=== PATIENT | male | born 1965 | race Caucasian/White ===

== ENCOUNTER 2018-10-16 09:50 | Inpatient (IN) ==
--- NOTE | 2018-10-14 10:08 | Anesthesiology Consultation ---
Date of Service October 14, 2018 Assessment & Plan (1) Encounter for pre-operative examination: Patient was scheduled for B/L TKA 10/08/18. Seen by LAKHWINDER Barber at [facility] on 09/11/18 (physical exam/ROS/vitals from that time included in chart). Patient was found to have abnormal CXR and followup chest CT finding of mediastinal mass. Knee surgery cancelled at this time pending workup of mediastinal mass (reason for current surgery). Chart Review Chart Review: Acceptable Risk for Surgery and Patient NOT seen in Pre Admission Testing History Surgery Operation Date: 10/16/18 11:30 Proposed Procedures p Right Robotic Video Assisted Thoracoscopic Surgery with Excision of Mediastinal Mass - Jose Mallory MD, FACS Height/Weight Height: 6 ft 1 in Weight: 126.1 kg Allergies Allergy/AdvReac Type Severity Reaction Status Date / Time No Known Allergies Allergy Unverified 09/11/18 07:57 Medications Home Medications Medication Instructions Recorded Confirmed Last Taken tamsulosin 0.4 mg PO DAILY 09/11/18 09/11/18 Unknown Past Medical History Medical History BPH (benign prostatic hyperplasia) Mediastinal mass REASON FOR PROCEDURE Osteoarthritis Past Family History Family History Unknown No problems noted. Past Surgical History Surgical History History of colonoscopy History of inguinal hernia repair, bilateral INFANCY Hx of arthroscopy of knee B/L Social History Smoking Status: Never smoker Hx Alcohol Use: Yes Alcohol type: beer alcohol intake frequency: a few times a week Hx Substance Use: No substance use type: does not use Review of Systems Per PAT visit 09/11/18 by LAKHWINDER Barber: Patient denies chest pain, shortness of breath, dyspnea on exertion, reflux, cough, wheezing, palpitations. +joint pain (knees) Physical Exam Vital Signs Per PAT visit 09/11/18 by LAKHWINDER Barber: Vital Signs BP: 134/85 P: 75 R: 14 T: 98.6 SPO2: 96% on RA Per PAT visit 09/11/18 by LAKHWINDER Barber: ENMT Thyromental Distance: > or= 3.5 Finger Breadths (3.5) Mallampati Class: II Neck normal visual inspection and trachea midline; neck extension not limited Respiratory normal respiratory effort Auscultation: lungs clear to auscultation bilaterally Cardiovascular Rate/Rhythm: regular rate and regular rhythm Heart Sounds: no murmur Vessels: no carotid bruit Neurologic moves all extremities Psychiatric Orientation: alert and oriented x 3 Testing Electrocardiogram Date: 09/11/18 Findings: + NSR @ (64) Chest X-Ray Date: 09/11/18 Abnormal configuration to the right heart border which likely represents the normal overlapping pulmonary vessels. However, in the absence of prior studies recommend dedicated chest CT to exclude the less likely possibility of a mediastinal lesion. This finding was called/faxed to the referring physician's office following dictation. Stress Test Date: 09/14/14 Type: exercise Findings: + WNL Resting EF: 55-60% Valvular Disease: no significant valvular disease The stress echo is negative for inducible ischemia. No arrhythmias. Normal HR and BP response to exercise. Average exercise tolerance. At rest, normal LV chamber size and wall thickness. Normal LV systolic function without RWMA. Grade I diastolic dysfunction Other Testing Chest CT= 09/23/18= Circumscribed soft tissue mass of the anterior mediastinum correlates with the finding seen on comparison chest radiograph and measures up to 8.1 cm and demonstrates minimal central low attenuation suggestive of areas of internal necrosis. Differential considerations would include thymic epithelial neoplasm which is favored with lymphoma or germ cell tumor among other etiologies considered less likely. Surgical consultation recommended. No thoracic adenopathy identified. There are several scattered noncalcified solid pulmonary nodules noted about the bilateral lungs measuring up to 4 mm. Prior granulomatous disease. Laboratory Results 09/11/18 WBC 4.99 H/H 15.9/46.4 PLATELETS 232 SODIUM 140 POTASSIUM 4.6 CHLORIDE 105 CO2 28 BUN 19 CREATININE 1.14 GLUCOSE 99 PT 10.2 PTT 27.1 INR 1.0 UA negative bacteria TYPE AND SCREEN O+ Ab-
[~2018-10-16 09:50] MED LIST: LR 15ML/HR IV SCH
--- NOTE | 2018-10-16 10:21 | History & Physical Bridge Note ---
Date of Service October 16, 2018 History & Physical Bridge Note I have examined the patient, reviewed the History & Physical and in the interval since the performance of the History & Physical I have noted the following changes of clinical significance: no changes noted
[2018-10-16] MEDS ORDERED: BUPIVACAINE 0.5 % 5 MG/1 ML MPF 30ML VIAL ONE (10:34)
[2018-10-16] MEDS ORDERED: BUPIVACAINE LIPOSOME 1.3% 266 MG/20 ML VIAL ONE (10:35)
[2018-10-16] MEDS ORDERED: SODIUM CHLORIDE 0.9% PF 50 ML VIAL ONE (10:35)
[2018-10-16] MEDS ORDERED: PHENYLEPHRINE HCL 10 MG/ML VIAL ONE (10:54)
[2018-10-16] MEDS ORDERED: NEOSTIGMINE METHYLSULFATE 5 MG/5 ML SYR ONE (10:54)
[2018-10-16] MEDS ORDERED: SUCCINYLCHOLINE CHLORIDE 20 MG/ML 10 ML VIAL ONE (10:54)
[2018-10-16] MEDS ORDERED: GLYCOPYRROLATE 0.2 MG/ML VIAL ONE (10:54)
[2018-10-16] MEDS ORDERED: DEXAMETHASONE SOD INJ 4 MG/ML VIAL ONE (10:54)
[2018-10-16] MEDS ORDERED: ONDANSETRON INJ 2 MG/ML 2 ML VIAL ONE (10:54)
[2018-10-16] MEDS ORDERED: LIDOCAINE HCL 2% 2 ML VIAL/AMP(20MG/ML) INFIL ONE (10:54)
[2018-10-16] MEDS ORDERED: PROPOFOL IV EMULSION 10 MG/ML 20 ML VIAL IV ONE (10:54)
[2018-10-16] MEDS ORDERED: ePHEDrine sulfate 50 MG/ML AMP ONE (10:54)
[2018-10-16] MEDS ORDERED: fentaNYL citrate 100 MCG/2 ML VIAL ONE ×2 (10:55→11:18)
[2018-10-16] MEDS ORDERED: MIDAZOLAM HCL 1 MG/ML 2ML VIAL ONE (10:55)
[2018-10-16] MEDS ORDERED: CEFAZOLIN 3000MG 72.5 ML IV ONE (12:44)
[2018-10-16] MEDS ORDERED: ATROPINE SULFATE 0.1 MG/ML 10ML SYR IV PRN (13:34)
[2018-10-16] MEDS ORDERED: ONDANSETRON INJ 2 MG/ML 2 ML VIAL IV PRN ×2 (13:34→16:25)
[2018-10-16] MEDS ORDERED: PROMETHAZINE HCL 6.25 MG in SODIUM CHLORIDE 0.9% 50 ML IV PRN (13:34)
[2018-10-16] MEDS ORDERED: ePHEDrine sulfate 50 MG/ML AMP IV PRN (13:34)
[2018-10-16] MEDS ORDERED: ALBUTEROL HFA INHALER 8.5 GM ONE (13:39)
[2018-10-16] MEDS ORDERED: ETOMIDATE 2 MG/ML 20 ML VIAL IV ONE (13:39)
--- NOTE | 2018-10-16 13:43 | Post Operative Brief Note ---
Immediate Post Op Note v1 Date of Surgery October 16, 2018 Pre & Post Diagnosis Operation Date: 10/16/18 11:30 Pre-Op Diagnosis: Mediastinal Mass Post-Op Diagnosis: Mediastinal Mass Procedure Operation Date: 10/16/18 11:30 Actual Procedures p Right Robotic Video Assisted Thoracoscopic Surgery with Excision of Mediastinal Mass - Jose Mallory MD, FACS Surgeon Jose Mallory MD, FACS Customer Relationship Specialist Jamey MACHADO Estimated Blood Loss 15 Findings Consistent with Post-Op Diagnosis Drains Chest Tube (24fr placed intraoperatively) and Akhtar Catheter (16fr catheter placed by Sunday Choudhury RN, without difficulty; akhtar demonstrates clear yellow urine. Output measured and recorded by anesthesia.)
[2018-10-16] MEDS ORDERED: METOCLOPRAMIDE HCL INJ 5 MG/ML 2 ML VIAL IV ONE (14:05)
[2018-10-16] MEDS ORDERED: ROCURONIUM BROMIDE 10 MG/ML 5 ML VIAL ONE (14:14)
[2018-10-16] MEDS: fentaNYL citrate 100 MCG/2 ML VIAL IV PRN ×4 (14:14→14:34)
--- NOTE | 2018-10-16 14:27 | XRay Report ---
XR chest 1V portable CLINICAL HISTORY: thymectomy COMPARISON STUDY: Chest radiograph September 11, 2018. Chest CT September 23, 2018. FINDINGS: A tube projects over the right hemithorax and mediastinum. There is no pneumothorax. Lung v olumes are mildly diminished. There is no evidence for pulmonary edema. Bibasilar opacities favor ate lectasis. IMPRESSION: 1. No pneumothorax. Chest tube projects over the right hemithorax and mediastinum. 2. Diminished lung volumes with bibasilar opacities which favor atelectasis. Electronically signed by: David Tamayo M.D. 10/16/2018 2:26 PM
[2018-10-16] MEDS: HYDROmorphone INJ 2 MG/ML SYR/VIAL IV PRN ×3 (14:39→14:59)
[2018-10-16] MEDS: OXYCODONE HCL IR 5 MG TAB (IMMEDIATE RELEASE) PO PRN (17:07)
[2018-10-16] MEDS: D5W AND 1/2NSS 1,000 ML IV SCH (18:08)
[2018-10-16] MEDS: ACETAMINOPHEN 1,000 MG/100 ML VIAL IV SCH (18:08)
[2018-10-16] MEDS ORDERED: COUGH DROP (SUGAR FREE) LOZ 24 LOZ/1 BOX BUCCAL ONE (20:25)
[2018-10-16] MEDS: METOCLOPRAMIDE HCL INJ 5 MG/ML 2 ML VIAL IV SCH (20:26)
[2018-10-16] MEDS: MoRPHine SULFATE 2 MG/ML CARP IV PRN (20:26)
[2018-10-16] MEDS: DOCUSATE SODIUM 100 MG CAP PO SCH (20:28)
[2018-10-16] MEDS ORDERED: TAMSULOSIN HCL 0.4 MG CAP PO SCH (21:00)
--- NOTE | 2018-10-16 22:18 | Operative Report ---
DATE OF OPERATION: 10/16/2018 PREOPERATIVE DIAGNOSIS: Anterior mediastinal mass. POSTOPERATIVE DIAGNOSIS: Thymoma. PROCEDURE: Robot-assisted right thoracoscopic thymectomy. SURGEON: Jose Mallory MD SENIOR INFORMATION SECURITY ANALYST: CARTER Redmond (MrShana Blue was present for the entire case, was at the patient's bedside, while I was at the console.) ANESTHESIA: General anesthesia with endotracheal intubation using double lumen tube. SPECIFICS OF PROCEDURE AND FINDINGS: This is a 53-year-old male who has severe osteoarthritis of both knees. He underwent a preoperative chest x-ray and was found to have a mediastinal mass. He underwent a workup and this certainly appeared to be a thymoma from its radiographic appearance. He was asymptomatic. We had a long talk about this in the office and scheduled him for a robot-assisted thoracoscopic resection. On 10/16/2018, the patient underwent an uncomplicated robot-assisted thoracoscopic resection via the right chest. It was a large mass. We did get it out. We had to open the assistance incision a bit in the lower lateral chest. Frozen section confirmed this was a thymoma. It was completely encapsulated. DESCRIPTION OF PROCEDURE: The patient was brought to the operating room and laid in the supine position. General anesthesia induced and endotracheal intubation was performed with double lumen tube. After this had been assessed bronchoscopically, we then left the patient in a supine position, but we did depress his right arm and elevate his right chest just on a small roll. He was then prepped and draped in usual sterile fashion after appropriate antibiotics had been given and a timeout had been called. A 5-mm thoracoscope was placed lateral to the mid axillary line in about the fifth interspace. Upon entering, it could be seen there were no adhesions. The thoracoscope was inserted and used to guide the anterior superior incision which was lateral to the pectoralis and anterior to the axilla. This was an 8-mm robotic port. Another 8-mm robotic port was placed at about the fifth interspace anteriorly. We placed an assistance port above the diaphragm. The robot was then docked. Upon entering the chest, this mass was easily apparent. It was a bit lobulated. Using electrocautery and traction, we this easily from the anterior sternal wall. It then came down and we were able to reflect it off of the pericardium inferiorly and then took both the superior poles of the thymus. We did use clips to control the venous bleeding. After freeing this up, we stayed on the pericardium and came over laterally. We then retracted the mass, which was rather large medially and identified the phrenic nerve. We kept our dissection medial to this superiorly and inferiorly. We were able to do this sharply and we were able to separate the entire mass. There was a bit of an inflammatory response to the pericardial fat and the pericardium and we were able to easily separate these. We then placed this in a large Endobag. This was placed in the assistance port. The robot was then undocked. We had to open this incision a few centimeters in order to deliver the mass off the field. It was hard and lobulated. It was sent down to the lab for frozen section. While waiting for this, we performed an Exparel block. Exparel 266 mg, was mixed with 30 mL of 0.25% Marcaine and 250 mL of normal saline to create a solution which we injected into each of the 4 ports prior to opening. We then injected the larger incision after we had opened it at the conclusion of the case to get the specimen out. We then performed a block from the 2nd to 11th rib under thoracoscopic guidance. This was an intercostal block intrathoracically. We irrigated out the chest, really had no bleeding. A 24-Canadian chest tube was placed through the camera port and directed towards the apex under thoracoscopic guidance. It was held in place with heavy silk suture. A 0 Vicryl was used to close the muscle layers of all of these incisions and 4-0 Monocryl was used in running subcuticular fashion to approximate the wound edges. He had no air leak. He was extubated in the room. Blood loss was negligible. Frozen section came back as consistent with thymoma. I attest to the content of the Intraoperative Record and any orders documented therein. Any exception s are noted below.
[2018-10-17] MEDS: ACETAMINOPHEN 1,000 MG/100 ML VIAL IV SCH (01:49)
[2018-10-17] MEDS: D5W AND 1/2NSS 1,000 ML IV SCH (01:49)
[2018-10-17] MEDS: METOCLOPRAMIDE HCL INJ 5 MG/ML 2 ML VIAL IV SCH (05:02)
[2018-10-17] MEDS: OXYCODONE HCL IR 5 MG TAB (IMMEDIATE RELEASE) PO PRN (05:24)
--- NOTE | 2018-10-17 07:20 | XRay Report ---
XR chest 1V portable HISTORY: 53 years-old Male thymectomy follow up study in a patient with prior thoracic surgery COMPARISON: Chest radiograph 10/16/2018 TECHNIQUE: Portable AP view of the chest FINDINGS: Cardiac mediastinal and hilar silhouettes appear unchanged. The right-sided chest tube is noted with distal tip terminating about the medial right lung base, slightly inferior from comparison. Decreased subcutaneous emphysema about the right lateral chest wall. Tiny right apical pneumothorax, pleural s eparation of 1.2 cm. Lungs are hypoinflated. Mild right hemidiaphragm elevation with subsegmental bib asilar atelectasis. Degenerative changes of the shoulders and spine. IMPRESSION: 1. Right-sided chest tube distal tip terminates adjacent to the medial right lung base. Tiny right ap ical pneumothorax, pleural separation of 1.2 cm. 2. Hypoinflation with bibasilar opacities suggestive of atelectasis. The above report was generated using voice recognition software. It may contain grammatical, syntax o r spelling errors. Electronically signed by: Aquiles Zarco M.D. 10/17/2018 7:18 AM
[2018-10-17] MEDS: MoRPHine SULFATE 2 MG/ML CARP IV PRN (07:30)
[2018-10-17] MEDS ORDERED: CEFAZOLIN 250 MG/ML 1 GM VIAL ONE (07:43)
[2018-10-17 07:46] LABS: Creatinine Clr Calc Pharmacy 132.3 ml/min; Est GFR (African American) 113.4; Est GFR (Non-African American) 97.8
--- NOTE | 2018-10-17 07:53 | Anesthesiology Progress Note ---
Date of Service October 17, 2018 Anesthesia Post Procedure Vital Signs Vital Signs: Temp Pulse Pulse Pulse Resp BP BP 10/17/18 07:00 36.9 C 66 16 120/76 10/17/18 05:05 36.9 C 80 16 115/72 10/17/18 03:00 37 C 77 16 113/70 10/17/18 01:00 37 C 79 16 118/72 10/16/18 23:03 36.8 C 71 18 118/72 10/16/18 21:20 37.3 C 81 16 109/67 10/16/18 19:27 37.0 C 89 19 124/73 10/16/18 18:00 89 16 121/79 10/16/18 17:00 36.9 C 97 H 18 123/72 10/16/18 15:55 37.0 C 82 16 137/81 10/16/18 15:35 68 12 119/73 10/16/18 15:20 36.7 C 65 14 128/81 10/16/18 15:10 75 13 124/76 10/16/18 15:00 61 12 145/91 H 10/16/18 14:50 79 13 131/77 10/16/18 14:40 79 19 143/88 H 10/16/18 14:30 59 L 13 142/81 H 10/16/18 14:20 58 L 14 152/89 H 10/16/18 14:12 66 19 144/91 H 10/16/18 14:04 36.0 C L 70 16 156/92 H 10/16/18 10:10 36.5 C 62 18 142/84 H Pulse Ox 10/17/18 07:00 91 10/17/18 05:05 92 10/17/18 03:00 98 10/17/18 01:00 91 10/16/18 23:03 91 10/16/18 21:20 91 10/16/18 19:27 93 10/16/18 18:00 93 10/16/18 17:00 93 10/16/18 15:55 96 10/16/18 15:35 97 10/16/18 15:20 97 10/16/18 15:10 95 10/16/18 15:00 96 10/16/18 14:50 98 10/16/18 14:40 94 10/16/18 14:30 95 10/16/18 14:20 100 10/16/18 14:12 98 10/16/18 14:04 97 10/16/18 10:10 97 Pain Intensity Right Anterior Lateral Chest: Pain Intensity: 7 Notes Mental Status: alert / awake / arousable and participated in evaluation Patient Amnestic to Procedure: Yes Nausea / Vomiting: adequately controlled Pain: adequately controlled Airway Patency, RR, SpO2: stable & adequate BP & HR: stable & adequate Hydration State: stable & adequate Anesthetic Complications: Pt Satisfied with anesthetic care
--- NOTE | 2018-10-17 07:55 | XRay Report ---
XR chest 1V portable HISTORY: 53 years-old Male chest tube removal status post removal of right-sided chest tube COMPARISON: Chest radiograph of same day at 7:06 AM TECHNIQUE: Portable AP view of the chest FINDINGS: Status post removal of the right-sided chest tube. Tiny right apical pneumothorax appears unchanged w ith pleural separation of approximately 1.2 cm. Cardiac mediastinal and hilar silhouettes are unchang ed. Mild right hemidiaphragmatic elevation. Subsegmental bibasilar atelectasis. Degenerative changes of the shoulders and spine. Subcutaneous emphysema of the lateral right chest wall. IMPRESSION: 1. Status post removal of the right-sided chest tube. Tiny right apical pneumothorax is unchanged. 2. Mild right hemidiaphragmatic elevation with bibasilar opacities suggestive of atelectasis. The above report was generated using voice recognition software. It may contain grammatical, syntax o r spelling errors. Electronically signed by: Aquiles Zarco M.D. 10/17/2018 7:54 AM
[2018-10-17 08:00] VITALS: PULSE 79; TEMP 99; O2SAT 92
[2018-10-17] MEDS ORDERED: ACETAMINOPHEN 325 MG TAB PO SCH (08:00)
[2018-10-17 08:18] VITALS: BP 137/81
[2018-10-17] MEDS ORDERED: ENOXAPARIN INJ 40 MG/0.4 ML SYR SQ SCH (09:00)
[2018-10-17] MEDS: DOCUSATE SODIUM 100 MG CAP PO SCH (09:22)
--- NOTE | 2018-10-18 05:22 | Discharge Summary ---
DISCHARGE DIAGNOSES: 1. Thymoma. 2. Status post right robot-assisted thoracoscopic thymectomy. HOSPITAL COURSE: This is a very nice 53-year-old male, actually has severe osteoarthritis of both of his knees and was being readied for bilateral total knee arthroplasties when his chest x-ray showed a mass in his mediastinum. For this reason, he underwent a CT scan and was found to have a lobulated mass, certainly appeared to be a thymoma. I saw him in the office and set him up for a thymectomy. On 10/16/2018, the patient underwent an uncomplicated right robot-assisted thoracoscopic thymectomy. It was large. It was encapsulated. We had to make our assistance incision a bit longer in order to get the solid mass out. Frozen section was performed and Dr. Yung Rainey felt we were dealing with a thymoma. The capsule was intact. We had negligible blood loss and no air leak. He tolerated it well. His chest tube was removed. The following morning, his x-ray looked quite good. His pain was well controlled. We did send him home on some oxycodone. I will see him back next week to go over the final pathology. He tolerated this quite well. We were quite pleased with him after surgery.
== END 2018-10-17 11:14 | disposition home or self-care (01) | DRG 804 ==
LOC: ASU 09:50 → 3W 13:53

== ENCOUNTER 2018-12-25 05:48 | Inpatient (IN) ==
--- NOTE | 2018-11-29 08:31 | History & Physical Report ---
Date of Service November 29, 2018 Date of Surgery: 12-25-18 Assessment & Plan (1) Bilateral primary osteoarthritis of knee: Further care discussed with Mr Burris and at this point in time has failed conservative measures and would like to proceed with bilateral total knee replacements on 12-25-18. Plan on discharge will be home with home health physical therapy. DVT prophalaxis with TEDs, SCDs and will also place on Xarelto daily for a month postop. Patient will have follow up appointment in our office two weeks post op for staple removal and re-evaluation. Patient otherwise has no other questions or concerns. Xrays confirm advancing degenerative changes in both knees, he takes Aleve daily, has had knee arthroscopy on both knees in the past, xrays showing advancing DJD both knees, he has also had previous visco injections at this point would like to proceed with bilateral TKAs. History of Present Illness Chief Complaint: bilateral knee pain Primary Care Provider: Yung Fernandez MD Mr Burris is a pleasant 53 year old male who complains of bilateral knee pain, presents for pre-op evaluation prior to bilateral total knee replacements on 11-[address] Lai. He had initially been scheduled earlier this year, however after his pre-op CXR, he followed up with Dr Mallory and subsequently underwent Robot-assisted right thoracoscopic thymectomy. he has recovered well from this surgery and has been cleared to proceed. In regards to his knees, He states his pain is equal on both sides. He states that the symptoms have been chronic non-traumatic. The symptoms occur constantly with intermittent worsening. Currently the patient states that the symptoms are mild-moderate. The pain is described as aching, discomforting and throbbing. The symptoms occur continuously. He rates his current pain as 4/10 and worst is 8/10. The symptoms are aggravated by ascending stairs, descending stairs, daily activities, first steps while awake, kneeling, sleeping in any position, squatting, standing, walking and work activities. Uri states that the symptoms are relieved by no specific activity. In addition to knee pain equally on both sides the patient is also experiencing crepitus, decreased mobility, difficulty going to sleep and joint pain. He has been treated previously with Visco injections, Cortisone injections as well as has had arthroscopic surgery. 03-25-09 Dr. Lai performed Right knee arthroscopy with partial medial meniscectomy & chondroplasty. 06-09-12 Left knee arthroscopy with partial medial meniscectomy & chondroplasty. Allergies Allergy/AdvReac Type Severity Reaction Status Date / Time No Known Allergies Allergy Verified 10/16/18 10:09 Home Medications Home Medications Medication Instructions Recorded Confirmed Type tamsulosin 0.4 mg PO QPM 09/11/18 10/16/18 History oxycodone 5 mg PO Q6H PRN #18 cap 10/17/18 Rx Past Med/Surg History Medical History BPH (benign prostatic hyperplasia) Mediastinal mass REASON FOR PROCEDURE Osteoarthritis Surgical History History of thymectomy 2019 History of colonoscopy History of inguinal hernia repair, bilateral INFANCY Hx of arthroscopy of knee B/L Family History Unknown No problems noted. Social History Preferred Language: Ukrainian Communication Ability: Effective Beliefs That Will Affect Care: None Current Living Situation: Spouse Feels Safe at Home: Yes Smoking Status: Never smoker Cigarettes Per Day: 20 Second Hand Exposure: No Hx Alcohol Use: Yes Alcohol type: beer Hx Substance Use: No Review of Systems Review of Systems: All systems reviewed & are unremarkable except as noted in HPI & below Constitutional: no fever, no chills and no sweats Respiratory: no cough, no chest congestion and no dyspnea Cardiovascular: no chest pain, no dyspnea and no orthopnea Gastrointestinal: no abdominal pain, no nausea and no vomiting Musculoskeletal: as per Subjective / HPI Physical Exam Physical Exam: HT: 73 in WT: 250 lbs BP: 130/80 Pulse: 72 Constitutional: WD/WN, vitals as above no acute distress Respiratory: normal respiratory effort, lungs clear to auscultation no respiratory distress, no labored breathing and does not use accessory muscles Cardiovascular: RRR, no murmur, no edema Gastrointestinal (Abdomen): normal bowel sounds, soft, nontender, no hepatosplenomegaly Musculoskeletal: Bilateral knee Physical exam Overall patient has neutral alignment bilaterally, there is no atrophy or ecchymosis noted, she does have +2 suprapatellar effusion in both of her knees, she has tenderness to both medial and lateral joint lines to her right knee, more medial sided tenderess to the left knee. negative patellar apprehension, she does have crepitation noted to both knees with active ROM. bilateral knees stable to valgus and varus stress, wilmar negative, posterior drawer negative. Range of motion right knee 0/3/110, left knee 0/3/115. her lower extremities are neurovascularly intact, calf soft and non tender, DP pulse +2 bilaterally. Results & Data Diagnostic Findings Bilateral Knee X-ray from August 2018 confirm advanced degenerative changes bilateral knees, greatest medial compartments and patellofemoral joints, showing joint space narrowing, osteophyte formation and subchondral sclerosis. no acute bony pathology noted. no loose bodies, overall has varus alignment.
--- NOTE | 2018-11-29 09:43 | Anesthesiology Consultation ---
Date of Service November 29, 2018 Assessment & Plan (1) Encounter for pre-operative examination: Chart Review Chart Review: Acceptable Risk for Surgery and Patient seen in Pre Admission Testing Consults Requested medical (Dr. Hicks (11/29)) Patient was seen by Dr. Fernandez 11/29/18 and note states "Low overall cardiac risk for b/l knee replacement". Teaching & Discussion Pre-Anesthesia Teaching/Discussion Notes: Instructed NPO after midnight before surgery, except medications with 15 cc of water. Medication instructions provided according to the PAT guidelines. 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 Denies CP or SOB.) Past Family History Family History Unknown No problems noted. Grandmother (Maternal) Family history of diabetes mellitus Past Surgical History Surgical History History of thymectomy 2018 (BENIGN) 10/16/18 - MAC #4, Grade 2 View History of colonoscopy History of inguinal hernia repair, bilateral INFANCY Hx of arthroscopy of knee B/L Past Anesthesia History No Hx of Anesthesia Complications and No Family Hx of Anesthesia Complications History of PONV No Hx of PONV and No Hx of Motion Sickness Social History Smoking Status: Never smoker Hx Alcohol Use: Yes Alcohol type: beer alcohol intake frequency: a few times a week Alcohol Intake Frequency Comment: Weekends Hx Substance Use: No substance use type: does not use Review of Systems Patient denies chest pain, shortness of breath, dyspnea on exertion, joint pain, reflux, cough, wheezing, palpitations. +Joint Pain (Knees) Physical Exam Vital Signs BP: 112/74 P: 64 R: 16 T: 97.9 SPO2: 97% on RA ENMT Thyromental Distance: > or= 3.5 Finger Breadths (4) Mallampati Class: I Neck normal visual inspection and trachea midline; neck extension not limited Respiratory normal respiratory effort Auscultation: lungs clear to auscultation bilaterally Cardiovascular Rate/Rhythm: regular rate and regular rhythm Heart Sounds: no murmur Vessels: no carotid bruit Neurologic moves all extremities Psychiatric Orientation: alert and oriented x 3 Testing Electrocardiogram Date: 09/11/18 Findings: + NSR @ (64) Chest X-Ray Date: 10/26/18 Findings: + NAD FINDINGS: There is no pneumothorax or pleural effusion. Cardiomediastinal silhouette is normal. Linear bilateral opacities favor atelectasis. There is no evidence for pulmonary edema or pneumonia. IMPRESSION: 1. No acute cardiopulmonary findings. No pneumothorax. 2. Linear bilateral opacities suggestive of atelectasis. Stress Test Date: 09/14/14 Type: exercise Findings: + WNL Resting EF: 55-60% Resting RWMA: + none Valvular Disease: no significant valvular disease The stress echo is negative for inducible ischemia. No arrhythmias. Normal HR and BP response to exercise. Average exercise tolerance. At rest, normal LV chamber size and wall thickness. Normal LV systolic function without RWMA. Grade I diastolic dysfunction Laboratory Results 11/29/18 10:12 11/29/18 10:12 PT 10.3 Seconds (9.0-12.0) 11/29/18 10:12 INR 1.0 (0.9-1.1) 11/29/18 10:12 APTT 28.4 Seconds (21.0-31.0) 11/29/18 10:12 Urine Color Yellow 11/29/18 10:12 Urine Appearance Clear (Clear) 11/29/18 10:12 Urine pH 6.5 (4.5-7.5) 11/29/18 10:12 Ur Specific [place] 1.016 (1.000-1.030) 11/29/18 10:12 Urine Protein Negative (Negative) 11/29/18 10:12 Urine Glucose (UA) Negative (Negative) 11/29/18 10:12 Urine Ketones Negative (Negative) 11/29/18 10:12 Urine Nitrite Negative (Negative) 11/29/18 10:12 Ur Leukocyte Esterase Negative (Negative) 11/29/18 10:12 Urine WBC (Auto) 0 /hpf (0-5) 11/29/18 10:12 Urine RBC (Auto) 0-4 /hpf (0-4) 11/29/18 10:12 U Hyaline Cast (Auto) 0 /lpf (0-5) 11/29/18 10:12 U Epithel Cells (Auto) 0-5 /lpf (0-5) 11/29/18 10:12 Urine Bacteria (Auto) Negative (Negative) 11/29/18 10:12
--- NOTE | 2018-11-29 09:46 | PAT Medication Instructions ---
Medication Instructions Date of Service November 29, 2018 Home Medications tamsulosin 0.4 mg PO QPM Take morning of surgery With a small sip of water, OTHERWISE NOTHING TO EAT OR DRINK AFTER MIDNIGHT: tamsulosin 0.4 mg PO QPM Other Notes If you have any questions please call us at [phone] or [phone] or [phone] or [phone]
[2018-11-29 11:51] LABS: Basophils # (auto) 0.02 K/uL (0-0.2); Basophils % (auto) 0.4 %; Eosinophils # (auto) 0.07 K/uL (0-0.5); Eosinophils % (auto) 1.3 %; Hematocrit (blood only) 44.1 % (42-52); Hemoglobin 15.4 g/dL (14.0-18.0); Immature Granulocytes # (auto) 0.01 K/uL (0.00-0.02); Immature Granulocytes % (auto) 0.2 %; Lymphocytes # (auto) 1.63 K/uL (1.2-3.4); Mean Corpuscular Hgb Conc 34.9 g/dL (32-36); Mean Corpuscular Volume 86.5 fL (80-100); Mean Platelet Volume 10.4 fL (7.4-10.4); Monocytes # (auto) 0.67 K/uL (0.11-0.59); Monocytes % (auto) 12.7 %; Neutrophils # (auto) 2.86 K/uL (1.4-6.5); Neutrophils % (auto) 54.4 %; Platelet Count 251 K/uL (130-400); RDW Coefficient of Variation 13.5 % (11.5-14.5); RDW Standard Deviation 42.9 fL (36.4-46.3); White Blood Count 5.26 K/uL (4.8-10.8)
[2018-11-29 11:54] LABS: Appearance Urine Clear (Clear); Bacteria Urine Automated Negative (Negative); Bilirubin Urine Negative (Negative); Blood Urine Trace (Negative); Cast Urine Automated 0 /lpf (0-5); Color Urine Yellow; Epithelial Cell Urine Auto 0-5 /lpf (0-5); Glucose Urine UA Negative (Negative); Ketones Urine Negative (Negative); Leukocyte Esterase Urine Negative (Negative); Nitrite Urine Negative (Negative); Protein Urine Negative (Negative); RBC Urine Automated 0-4 /hpf (0-4); Specific Gravity Urine 1.016 (1.000-1.030); Urobilinogen Urine Negative (Negative); WBC Urine Automated 0 /hpf (0-5); pH Urine 6.5 (4.5-7.5)
[2018-11-29 12:01] LABS: Albumin Level 3.8 gm/dl (3.4-5.0); Creatinine Clr Calc Pharmacy 123.2 ml/min; Est GFR (African American) 106.1; Est GFR (Non-African American) 91.6; Potassium 4.4 mmol/L (3.5-5.1)
[2018-11-29 12:02] LABS: Partial Thromboplastin Time 28.4 Seconds (21.0-31.0); Prothrombin Time 10.3 Seconds (9.0-12.0)
[2018-11-29 12:56] LABS: Estimated Average Glucose 108 mg/dl; Hemoglobin A1C 5.4 % (4.5-5.6)
[2018-12-25] MEDS ORDERED: CEFAZOLIN 3000MG 65 ML IV SCH ×2 (06:00)
[2018-12-25] MEDS ORDERED: TRANEXAMIC ACID 1,000 MG **IV Pre-op IV SCH (06:00)
[2018-12-25] MEDS ORDERED: FAMOTIDINE 20 MG TAB PO SCH (06:00)
[2018-12-25] MEDS ORDERED: GABAPENTIN 300 MG PO SCH (06:00)
[2018-12-25] MEDS ORDERED: CeleBREX 200 MG CAP PO SCH (06:00)
[2018-12-25] MEDS ORDERED: ACETAMINOPHEN 500 MG TAB PO SCH (06:00)
[2018-12-25] MEDS ORDERED: ROPIVACAINE 0.5% HCL/PF 150 MG, BUPIVACAINE 0.5% MPF 30 ML, EPINEPHrine 30MG/30ML (OR U... INFIL SCH (06:00)
[2018-12-25] MEDS ORDERED: LR 500ML BOLUS, THEN 15ML/HR IV SCH (06:00)
[2018-12-25] MEDS ORDERED: dexAMETHasone 4 MG TAB PO SCH (06:00)
[2018-12-25] MEDS ORDERED: CEFAZOLIN 2000MG 2,000 MG/15 ML SYR IV SCH (06:00)
[2018-12-25] MEDS ORDERED: METOCLOPRAMIDE HCL 10 MG TABLET PO SCH (06:00)
[2018-12-25] MEDS ORDERED: TRANEXAMIC ACID 1,000 MG **IV Intra-op IV SCH (06:30)
[2018-12-25] MEDS ORDERED: BUPIVACAINE 0.5 % 5 MG/1 ML PF 10ML VIAL ONE (06:32)
[2018-12-25] MEDS ORDERED: ROPIVACAINE 0.5% 5 MG/ML 30 ML VIAL ONE (06:32)
[2018-12-25] MEDS ORDERED: LIDOCAINE HCL 2% 2 ML VIAL/AMP(20MG/ML) INFIL ONE (06:44)
[2018-12-25] MEDS ORDERED: fentaNYL citrate 100 MCG/2 ML VIAL ONE ×2 (06:44→10:51)
[2018-12-25] MEDS ORDERED: MIDAZOLAM HCL 1 MG/ML 2ML VIAL ONE ×2 (06:44→08:49)
[2018-12-25] MEDS ORDERED: PROPOFOL IV EMULSION 10 MG/ML 20 ML VIAL IV ONE ×5 (06:44→09:08)
[2018-12-25] MEDS ORDERED: ORTHO JOINT ANESTHETIC ONE (07:00)
[2018-12-25] MEDS ORDERED: POVIDONE-IODINE OP SOLN 30 ML BTL ONE (07:00)
[2018-12-25] MEDS ORDERED: BACITRACIN INJ 50,000 UNIT VIAL ONE (07:00)
--- NOTE | 2018-12-25 07:04 | History & Physical Bridge Note ---
Date of Service December 25, 2018 History & Physical Bridge Note I have examined the patient, reviewed the History & Physical and in the interval since the performance of the History & Physical I have noted the following changes of clinical significance: no changes noted
[2018-12-25] MEDS ORDERED: ATROPINE SULFATE 0.1 MG/ML 10ML SYR IV PRN (07:21)
[2018-12-25] MEDS ORDERED: HYDROmorphone INJ 1 MG/ML SYRINGE IV PRN (07:21)
[2018-12-25] MEDS ORDERED: ePHEDrine sulfate 50 MG/ML AMP IV PRN (07:21)
--- NOTE | 2018-12-25 10:40 | Operative Report ---
Post Operative Report Pre & Post Diagnosis Operation Date: 12/25/18 08:20 Pre-Op Diagnosis: BILATERAL KNEE OSTEOARTHRITIS Post-Op Diagnosis: BILATERAL KNEE OSTEOARTHRITIS Procedure Operation Date: 12/25/18 08:20 Actual Procedures p Bilateral Total Knee Arthroplasty(Bilateral) utilizing [employer] Nephew journey 2 patient matched total knee arthroplasty right size 8 femur 7 tibia 10 poly-35 oval patella left size 9 femur 10 tibia 9 poly-35 oval patella patient matched total knee arthroplasties- Steven Lai DO Surgeon Steven Lai DO Gantry Crane Operator Sonu MACHADO Estimated Blood Loss 10 Findings Consistent with Post-Op Diagnosis Patient presents severe end-stage DJD bilateral knees with subchondral sclerosis marginal osteophytes eburnated [id number] bilaterally varus alignment bilaterally moderate to large effusions bilaterally but no warmth no response to all conservative management presents for bilateral total knee arthroplasty above intraoperative findings noted times surgery Specimens Bone and cartilage Drains Medium bore Hemovac Complications none Disposition Accompanied Patient To Recovery: No Disposition: Recovery Room Indications Patient presents as a 53-year-old white male with severe end-stage DJD bilateral knees no response to conservative management including physical therapy anti- inflammatories relative rest activity modification cortical steroid injections Visco supplementation patient presents for total knee arthroplasty bilaterally the above intraoperative findings noted. Description of Procedure After proper prepping and draping of the bilateral lower extremities, an anterior midline incision was made over the region of the extensor extensor mechanism of the left knee. After meticulous hemostasis was obtained and maintained in subcutaneous tissues a medial parapatellar incision was made The patella was subluxed lateralward the medial lateral gutter were cleaned from any hypertrophic synovitis and scar tissue of the distal femoral block was placed and the distal femoral osteotomy cut was made subsequently the chamfers anterior and posterior osteotomy cuts were made utilizing the 4-in-1 block the tibia was subsequently subluxed anteriorward medial and ateral meniscal remnants were excised in their entirety remnants of the anterior and posterior cruciate ligaments were excised in their entirety excellent exposure of the proximal tibia was obtained the tibial osteotomy guide was placed on the proximal tibial osteotomy cut was made once again the knee was irrigated with copious amounts of sterile saline solution the patella was subsequently everted lateralward thickened scar tissue around the patella was removed the patella was subsequently cut utilizing a freehand technique and was drilled prepared for final preparation and placement of patella socially flexion-extension gaps were checked and the equal and symmetric trials were placed to the appropriate femoral and tibial trials with poly-spacer being placed for equal flexion and extension gaps and full range of motion including extension to 0 and flexion to 140 the trial components after having been taken to recovery range of motion was subsequently removed meticulous hemostasis was obtained and maintained subsequently a knee block injection of joint cocktail including ropivacaine 0.5% 150 mg. Bupivacaine 0.5% epinephrine 1-200,030 mL's toradol 30 mg dexamethasone 4 mg ketamine 10 mg clonidine 100 micrograms normal saline solution 30 mg was infiltrated into the soft tissues of the posterior knee medial lateral gutters and periosteal synovium special attention was paid to protect neurovascular structures at all times subsequently trial components having been removed the knee was irrigated with sterile saline solution. debris was removed the proximal tibia was subsequently prepared and was made ready for the placement of the tibial component tibial component was also cemented and tamped into position the femoral component was subsequently placed and cemented in the position the patellar component was subsequently cemented in position because hemostasis once again obtained and maintained wound having been thoroughly irrigated with debridement and debridement lavage was performed as well as a medial parapatellar incision closed with #1 Vicryl in interrupted fashion subcutaneous was closed with #2 Vicryl skin was closed with skin clips Next, an anterior midline incision was made over the region of the extensor extensor mechanism of the right knee. After meticulous hemostasis was obtained and maintained in subcutaneous tissues a medial parapatellar incision was made The patella was subluxed lateralward the medial lateral gutter were cleaned from any hypertrophic synovitis and scar tissue of the distal femoral block was placed and the distal femoral osteotomy cut was made subsequently the chamfers anterior and posterior osteotomy cuts were made utilizing the 4-in-1 block the tibia was subsequently subluxed anteriorward medial and ateral meniscal remnants were excised in their entirety remnants of the anterior and posterior cruciate ligaments were excised in their entirety excellent exposure of the proximal tibia was obtained the tibial osteotomy guide was placed on the proximal tibial osteotomy cut was made once again the knee was irrigated with copious amounts of sterile saline solution the patella was subsequently everted lateralward thickened scar tissue around the patella was removed the patella was subsequently cut utilizing a freehand technique and was drilled prepared for final preparation and placement of patella socially flexion-extension gaps were checked and the equal and symmetric trials were placed to the appropriate femoral and tibial trials with poly-spacer being placed for equal flexion and extension gaps and full range of motion including extension to 0 and flexion to 140 the trial components after having been taken to recovery range of motion was subsequently removed meticulous hemostasis was obtained and maintained subsequently a knee block injection of joint cocktail including ropivacaine 0.5% 150 mg. Bupivacaine 0.5% epinephrine 1-200,030 mL's toradol 30 mg dexamethasone 4 mg ketamine 10 mg clonidine 100 micrograms normal saline solution 30 mg was infiltrated into the soft tissues of the posterior knee medial lateral gutters and periosteal synovium special attention was paid to protect neurovascular structures at all times subsequently trial components having been removed the knee was irrigated with sterile saline solution. debris was removed the proximal tibia was subsequently prepared and was made ready for the placement of the tibial component tibial component was also cemented and tamped into position the femoral component was subsequently placed and cemented in the position the patellar component was subsequently cemented in position because hemostasis once again obtained and maintained wound having been thoroughly irrigated with debridement and debridement lavage was performed as well as a medial parapatellar incision closed with #1 Vicryl in interrupted fashion subcutaneous was closed with #2 Vicryl skin was closed with skin clips.. PA-C was necessary for prepping and drapping as well as wound closure of deep fascia Sub cutaneous tissue and skin and was necessary for the case. A sterile compressive dressings were placed, patient was taken to recovery in stable condition of report dictated by Ming I attest to the content of the Intraoperative Record and any orders documented therein. Any exceptions are noted below. I attest to the content of the Intraoperative Record and any orders documented therein. Any exceptions are noted below.
[2018-12-25] MEDS ORDERED: ONDANSETRON INJ 2 MG/ML 2 ML VIAL ONE (11:17)
[2018-12-25] MEDS ORDERED: MAGNESIUM HYDROXIDE SUSP 30 ML UDC PO PRN (11:54)
[2018-12-25] MEDS ORDERED: BISACODYL 10 MG SUPP PR PRN (11:54)
[2018-12-25] MEDS ORDERED: NALOXONE HCL 0.4 MG/1 ML VIAL/CARP IV PRN (11:54)
[2018-12-25] MEDS ORDERED: ONDANSETRON INJ 2 MG/ML 2 ML VIAL IV PRN (11:54)
--- NOTE | 2018-12-25 12:15 | XRay Report ---
XR knee LT 2V routine CLINICAL HISTORY: Postoperative examination COMPARISON: None. DISCUSSION: There are postsurgical changes of a total left knee arthroplasty and patellar resurfacing . The femoral and tibial components appear well seated. Overlying surgical drains are evident. There is air within the soft tissues consistent with the history of recent surgery. IMPRESSION: Postsurgical changes of a total left knee arthroplasty. Electronically signed by: Malcolm Perez M.D. 12/25/2018 12:14 PM
--- NOTE | 2018-12-25 12:15 | XRay Report ---
XR knee RT 2V routine CLINICAL HISTORY: Surgical Post Op COMPARISON: None. DISCUSSION: There are postsurgical changes of a total right knee arthroplasty and patellar resurfacin g. The femoral and tibial components appear well seated. Overlying surgical drains are evident. There is air in soft tissues consistent with recent surgery. IMPRESSION: Postsurgical changes of a total right knee arthroplasty. Electronically signed by: Malcolm Perez M.D. 12/25/2018 12:13 PM
[2018-12-25] MEDS: SODIUM CHLORIDE 0.9% 1000ML 1,000 ML IV SCH ×2 (12:47→22:06)
[2018-12-25] MEDS: ACETAMINOPHEN 500 MG TAB PO SCH ×2 (13:24→22:13)
[2018-12-25] MEDS: KETOROLAC 30 MG/ML VIAL IV SCH ×2 (13:24→20:01)
--- NOTE | 2018-12-25 14:37 | Anesthesiology Progress Note ---
Date of Service December 25, 2018 Anesthesia Post Procedure Vital Signs Vital Signs: Temp Pulse Pulse Resp BP Pulse Ox 12/25/18 13:18 61 16 126/85 100 12/25/18 12:38 63 18 128/82 99 12/25/18 12:15 36.4 C L 70 16 117/73 98 12/25/18 12:05 36.3 C L 66 12 106/70 96 12/25/18 12:00 67 14 116/82 98 12/25/18 11:50 66 10 L 109/76 96 12/25/18 11:40 75 15 111/79 96 12/25/18 11:34 36.6 C 85 12 114/82 96 12/25/18 06:15 36.4 C L 67 20 132/85 96 Pain Intensity Bilateral Knee: Pain Intensity: 0 Notes Mental Status: alert / awake / arousable and participated in evaluation Nausea / Vomiting: adequately controlled Pain: adequately controlled Airway Patency, RR, SpO2: stable & adequate BP & HR: stable & adequate Hydration State: stable & adequate
[2018-12-25] MEDS: OXYCODONE HCL IR 5 MG TAB (IMMEDIATE RELEASE) PO PRN ×3 (14:48→23:49)
[2018-12-25] MEDS: CEFAZOLIN 2000MG 2,000 MG/15 ML SYR IV SCH ×2 (15:54→23:51)
[2018-12-25] MEDS: HYDROmorphone INJ 0.5 MG/0.5 ML SYR IV PRN ×2 (17:01→22:14)
[2018-12-25] MEDS: FERROUS GLUCONATE 324 MG TAB PO SCH (17:02)
[2018-12-25] MEDS: SENNA 8.6 MG TAB PO SCH (20:01)
[2018-12-25] MEDS: DOCUSATE SODIUM 100 MG CAP PO SCH (20:01)
[2018-12-26] MEDS: KETOROLAC 30 MG/ML VIAL IV SCH ×4 (01:48→20:05)
[2018-12-26] MEDS: HYDROmorphone INJ 0.5 MG/0.5 ML SYR IV PRN ×3 (02:52→20:07)
[2018-12-26] MEDS: ACETAMINOPHEN 500 MG TAB PO SCH ×3 (05:15→21:42)
[2018-12-26 06:36] LABS: Hematocrit (blood only) 35.2 % (42-52); Hemoglobin 12.3 g/dL (14.0-18.0); Mean Corpuscular Hgb Conc 34.9 g/dL (32-36); Mean Corpuscular Volume 86.5 fL (80-100); Mean Platelet Volume 9.3 fL (7.4-10.4); Platelet Count 247 K/uL (130-400); RDW Standard Deviation 43.6 fL (36.4-46.3); Red Blood Count 4.07 M/uL (4.7-6.1); White Blood Count 8.63 K/uL (4.8-10.8)
[2018-12-26 07:10] LABS: BUN Creatinine Ratio 20.1 (10-20); Est GFR (African American) 90.7; Est GFR (Non-African American) 78.3
--- NOTE | 2018-12-26 08:11 | Anesthesiology Progress Note ---
Date of Service December 26, 2018 Anesthesia Post Procedure Vital Signs Vital Signs: Temp Pulse Pulse Pulse Pulse Resp BP 12/26/18 07:00 36.6 C 64 16 115/71 12/26/18 02:44 36.7 C 72 16 119/68 12/26/18 00:05 36.7 C 81 18 123/71 12/25/18 19:54 36.5 C 60 16 117/73 12/25/18 15:43 12/25/18 15:15 36.5 C 63 16 126/82 12/25/18 14:00 68 16 138/88 12/25/18 13:18 61 16 126/85 12/25/18 12:38 63 18 128/82 12/25/18 12:15 36.4 C L 70 16 117/73 12/25/18 12:05 36.3 C L 66 12 106/70 12/25/18 12:00 67 14 116/82 12/25/18 11:50 66 10 L 109/76 12/25/18 11:40 75 15 111/79 12/25/18 11:34 36.6 C 85 12 114/82 Pulse Ox 12/26/18 07:00 97 12/26/18 02:44 98 12/26/18 00:05 97 12/25/18 19:54 97 12/25/18 15:43 96 12/25/18 15:15 98 12/25/18 14:00 97 12/25/18 13:18 100 12/25/18 12:38 99 12/25/18 12:15 98 12/25/18 12:05 96 12/25/18 12:00 98 12/25/18 11:50 96 12/25/18 11:40 96 12/25/18 11:34 96 Pain Intensity Bilateral Knee: Pain Intensity: 5 Notes Mental Status: alert / awake / arousable and participated in evaluation Patient Amnestic to Procedure: Yes Nausea / Vomiting: adequately controlled Pain: adequately controlled Airway Patency, RR, SpO2: stable & adequate BP & HR: stable & adequate Hydration State: stable & adequate Neuraxial Anesthesia: was administered and sensory block resolved Anesthetic Complications: no major complications apparent
--- NOTE | 2018-12-26 08:37 | Orthopedic Progress Note ---
Date of Service December 26, 2018 Assessment & Plan (1) Bilateral primary osteoarthritis of knee: Postop day 1 status post bilateral total knee arthroplasties. PT OT protocols today. Weightbearing as tolerated. Immobilizer to one knee if needed. DVT prophylaxis with SCDs, YANIRA hose, rivaroxaban. Pain management with acetaminophen, hydromorphone, oxycodone, Toradol. Possibility of adding an extended release narcotic if pain is not controlled. DC planning-patient is planning on outpatient PT depending on his progression here at the hospital. Subjective Postop day 1 status post bilateral total knee arthroplasty. Patient is lying in bed sitting up. He is awake and alert and oriented. He states that his pain control is adequate whenever he is lying in bed however when he is up and ambulating he is having increased pain. He denies any shortness of breath ,chest pain,or lightheadedness. He denies any calf tenderness at this time. Physical Exam Physical Exam: Bilateral knee dressings are clean, dry, intact. Calves are soft nontender. Toes are mobile. Neurovascular is intact. Hemovac drains are present bilaterally and functioning. Results & Data Vital Signs (Past 12 Hours) Vital Signs Temp Pulse Pulse Resp BP Pulse Ox 12/26/18 07:00 36.6 C 64 16 115/71 97 12/26/18 02:44 36.7 C 72 16 119/68 98 12/26/18 00:05 36.7 C 81 18 123/71 97
[2018-12-26] MEDS: OXYCODONE HCL IR 5 MG TAB (IMMEDIATE RELEASE) PO PRN ×3 (09:06→18:06)
[2018-12-26] MEDS: FERROUS GLUCONATE 324 MG TAB PO SCH ×2 (09:07→16:44)
[2018-12-26] MEDS: RIVAROXABAN 10 MG TABLET PO SCH (09:07)
[2018-12-26] MEDS: MULTIVITAMIN TAB PO SCH (09:07)
[2018-12-26] MEDS: DOCUSATE SODIUM 100 MG CAP PO SCH ×2 (09:07→20:14)
[2018-12-26] MEDS: SENNA 8.6 MG TAB PO SCH (20:14)
[2018-12-27] MEDS: OXYCODONE HCL IR 5 MG TAB (IMMEDIATE RELEASE) PO PRN ×5 (00:02→17:45)
[2018-12-27] MEDS: KETOROLAC 30 MG/ML VIAL IV SCH ×2 (02:21→08:02)
[2018-12-27] MEDS: ACETAMINOPHEN 500 MG TAB PO SCH ×3 (05:35→21:13)
--- NOTE | 2018-12-27 07:06 | Orthopedic Progress Note ---
Date of Service December 27, 2018 Assessment & Plan (1) Bilateral primary osteoarthritis of knee: Postop day 2 status post bilateral total knee arthroplasties. PT OT protocols today. Weightbearing as tolerated. Immobilizer to one knee if needed. DVT prophylaxis with SCDs, YANIRA hose, rivaroxaban. Pain management with acetaminophen, hydromorphone, oxycodone, Toradol. will discuss with CM deana HHPT likely on Sunday Subjective Postop day 2 status post bilateral total knee arthroplasty. Patient is lying in bed sitting up. He is awake and alert and oriented. denies CP/SOB, denies Fever/Chills. pain currently 01/06 Review of Systems Constitutional: + sweats; no fever and no chills Physical Exam Physical Exam: Vital Signs Temp Pulse Resp BP Pulse Ox 12/26/18 23:37 37.0 C 79 14 130/72 96 12/26/18 15:40 36.5 C 69 17 119/73 98 12/26/18 11:22 37 C 61 16 116/68 97 Intake and Output 12/26/18 12/27/18 12/27/18 22:59 06:59 14:59 Intake Total 275 / 1305 Output Total 625 / 1600 625 / 1600 Balance -350 / -295 -625 / -295 Intake: Oral 275 / 1305 Output: Urine 375 / 900 525 / 900 Drain Output 250 / 700 100 / 700 Left Knee Hemo vac 125 / 375 50 / 375 Right Hemovac 125 / 325 50 / 325 Other: # Unmeasured Voi ds 1 1 Musculoskeletal: bilateral knees: NVDI, calf SNT, negative olive sign. DP palpable, able to wiggle toes/ankle movement without difficulty. prinea dressing clean dry and intact. expected post-operative bruising noted. Results & Data Vital Signs (Past 12 Hours) Vital Signs Temp Pulse Resp BP Pulse Ox 12/26/18 23:37 37.0 C 79 14 130/72 96
[2018-12-27] MEDS: FERROUS GLUCONATE 324 MG TAB PO SCH ×2 (08:02→17:46)
[2018-12-27] MEDS: DOCUSATE SODIUM 100 MG CAP PO SCH ×2 (08:02→21:12)
[2018-12-27] MEDS: MULTIVITAMIN TAB PO SCH (08:03)
[2018-12-27] MEDS: HYDROmorphone INJ 0.5 MG/0.5 ML SYR IV PRN ×3 (08:03→21:11)
[2018-12-27] MEDS: RIVAROXABAN 10 MG TABLET PO SCH (08:03)
[2018-12-27] MEDS ORDERED: HYDROmorphone INJ 0.5 MG/0.5 ML SYR IV STA (14:54)
[2018-12-27] MEDS ORDERED: MoRPHine SULFATE CR 15 MG TABCR PO SCH (15:00)
[2018-12-27] MEDS ORDERED: KETOROLAC 30 MG/ML VIAL IV PRN (15:20)
[2018-12-27] MEDS: MoRPHine SULFATE CR 15 MG TABCR PO SCH (17:45)
[2018-12-27] MEDS: SENNA 8.6 MG TAB PO SCH (21:13)
[2018-12-28] MEDS: OXYCODONE HCL IR 5 MG TAB (IMMEDIATE RELEASE) PO PRN ×3 (00:04→13:18)
[2018-12-28] MEDS: MoRPHine SULFATE CR 15 MG TABCR PO SCH (05:46)
[2018-12-28] MEDS: ACETAMINOPHEN 500 MG TAB PO SCH ×2 (05:46→13:20)
[2018-12-28] MEDS: MULTIVITAMIN TAB PO SCH (07:58)
[2018-12-28] MEDS: FERROUS GLUCONATE 324 MG TAB PO SCH (07:58)
[2018-12-28] MEDS: DOCUSATE SODIUM 100 MG CAP PO SCH (07:58)
[2018-12-28] MEDS: RIVAROXABAN 10 MG TABLET PO SCH (07:58)
--- NOTE | 2018-12-28 08:18 | Orthopedic Progress Note ---
Date of Service December 28, 2018 Assessment & Plan (1) Bilateral primary osteoarthritis of knee: Postop day 3 status post bilateral total knee arthroplasties. PT OT protocols today. Weightbearing as tolerated. Immobilizer to one knee if needed. DVT prophylaxis with SCDs, YANIRA conteh, rivaroxaban. Pain management D/C planning-home with home PT likely today. Will see how he does with PT. Subjective Postop day 3 status post bilateral total knee arthroplasty. Patient is lying in bed side chair. He is awake and alert and oriented. denies CP/SOB, denies Fever/Chills. pain is controlled with prn medications but is having increased pain from yesterday Review of Systems Review of Systems: All systems reviewed & are unremarkable except as noted in HPI & below Physical Exam Physical Exam: Incisions well approximated, no erythema or drainage. Prineo dressing in place. No calf tenderness. Results & Data Vital Signs (Past 12 Hours) Vital Signs Temp Pulse Resp BP Pulse Ox 12/28/18 06:28 37 C 92 H 16 145/84 H 99 12/27/18 23:30 37.1 C 81 16 134/75 96
--- NOTE | 2018-12-31 04:55 | Discharge Summary ---
DISCHARGE DIAGNOSIS: Degenerative joint disease, bilateral knees. SECONDARY DIAGNOSES: Benign prostatic hypertrophy, history of mediastinal mass, osteoarthritis. CONSULTS: None. COMPLICATIONS: None. PROCEDURES: Bilateral total knee arthroplasty performed by Dr. Lai on 12/25/2018. BRIEF HISTORY: As dictated in the history and physical. HOSPITAL SUMMARY: The patient was admitted on above-noted date and the above-noted surgery was performed, which he tolerated well. On his first postoperative day, he was lying in bed, sitting up. He was awake, alert and oriented. He states that his pain control was adequate whenever he was lying in bed; however, when he was up and ambulating, he was having increased pain. He denied any shortness of breath, chest pain or lightheadedness and denied any calf tenderness at that time. Bilateral knee dressings were clean, dry and intact. Calves were soft, nontender. Toes were mobile. Neurovascular intact. Hemovac drains were present bilaterally and functioning. Vital signs were stable. He was afebrile and hemoglobin was 12.3. He was started on physical therapy protocol and continued on DVT prophylaxis and pain management. By his second postoperative day, he was lying in bed, sitting up. He was awake, alert and oriented. Denied chest pain, shortness of breath. Denied fever or chills. Pain was currently at 6/10. Vital signs were stable. He was afebrile. Neurovascular intact. Calves were soft, nontender. Negative Homans sign. Dorsalis pedis pulse is palpable. Toes were mobile without difficulty. Prineo dressings were clean, dry and intact and he had expected postoperative bruising. He was continued on his PT protocol and continued on DVT prophylaxis with SCDs, YANIRA hose and rivaroxaban. Later that day, I was called due to pain control issues and at that point in time Toradol was continued and MS Contin 15 mg p.o. b.i.d. were added to his pain regimen. By his third postoperative day, he was sitting in his bedside chair, awake and alert. Denied chest pain, shortness of breath or fever or chills. Pain was controlled. Incisions were well approximated. He had no erythema or drainage. Prineo dressing was in place. No calf tenderness. Vital signs were stable. He was afebrile. He was otherwise remaining stable and it was felt he could be discharged to home with home health services. For further review, please see chart. LABORATORY AND X-RAY DATA: As per chart. DISCHARGE INSTRUCTIONS: The patient was discharged home in satisfactory condition with home health services on 12/28/2018. DIET: Regular. ACTIVITY: Weightbearing as tolerated on left and right lower extremities. Follow TK instruction sheets and special care instructions as noted. Follow up with Dr. Lai in 2 weeks. The patient to call for appointment if one has not been made for you. DISCHARGE MEDICATIONS: Cefadroxil 500 mg p.o. b.i.d., Ucon 1-2 tabs p.o. q. 4-6 hours p.r.n., MS Contin 15 mg p.o. q. 12 hours and Xarelto 10 mg p.o. daily. Resume tamsulosin 0.4 mg p.o. q.p.m.
== END 2018-12-28 16:10 | disposition home health service (06) | DRG 462 ==
LOC: ASU 05:48 → 3E 11:37

== ENCOUNTER 2021-02-02 17:13 | Inpatient (IN) ==
[2021-02-02] MEDS ORDERED: SODIUM CHLORIDE 0.9% 1000ML 1,000 ML IV SCH (18:30)
[2021-02-02 18:52] LABS: Basophils # (auto) 0.01 K/uL (0-0.2); Basophils % (auto) 0.1 %; Eosinophils # (auto) 0.55 K/uL (0-0.5); Eosinophils % (auto) 7.2 %; Hematocrit (blood only) 41.7 % (42-52); Hemoglobin 14.2 g/dL (14.0-18.0); Immature Granulocytes # (auto) 0.01 K/uL (0.00-0.02); Immature Granulocytes % (auto) 0.1 %; Lymphocytes # (auto) 1.39 K/uL (1.2-3.4); Lymphocytes % (auto) 18.2 %; Mean Corpuscular Hemoglobin 30.6 pg (25-34); Mean Corpuscular Hgb Conc 34.1 g/dL (32-36); Mean Corpuscular Volume 89.9 fL (80-100); Mean Platelet Volume 9.4 fL (7.4-10.4); Monocytes # (auto) 0.52 K/uL (0.11-0.59); Monocytes % (auto) 6.8 %; Neutrophils # (auto) 5.15 K/uL (1.4-6.5); Neutrophils % (auto) 67.6 %; Platelet Count 414 K/uL (130-400); RDW Coefficient of Variation 13.6 % (11.5-14.5); RDW Standard Deviation 44.9 fL (36.4-46.3); Red Blood Count 4.64 M/uL (4.7-6.1); White Blood Count 7.63 K/uL (4.8-10.8)
[2021-02-02 19:10] LABS: Alanine Aminotransferase 198 U/L (12-78); Albumin Level 3.2 gm/dl (3.4-5.0); Aspartate Aminotransferase 203 U/L (15-37); BUN Creatinine Ratio 19.6 (10-20); Blood Urea Nitrogen 17 mg/dl (7-18); Calcium 9.4 mg/dl (8.5-10.1); Carbon Dioxide 28 mmol/L (21-32); Chloride 102 mmol/L (98-107); Creatinine Clr Calc Pharmacy 131.4 ml/min; Est GFR (African American) 112.9 ml/min; Est GFR (Non-African American) 97.4 ml/min; Glucose 70 mg/dl (70-99); Magnesium 2.2 mg/dl (1.8-2.4); Potassium 3.6 mmol/L (3.5-5.1); Sodium 138 mmol/L (136-145)
--- NOTE | 2021-02-02 19:19 | Emergency Department Note ---
Impression & Plan Rhabdomyolysis, Myositis ED Provider Note NAME: LARISSA MURRAY AGE: 55 SEX: M : 1965 ARRIVES VIA: Walk-In INFORMANT: Patient, ED PROVIDER(S): Khoa Cartwright DO CHIEF COMPLAINT: Weakness HPI: The patient is a 55-year-old male who has a history of elevated CPK in the past which was thought to be secondary to an autoimmune mechanism who presented to the emergency department for an evaluation of weakness. The patient noticed diffuse weakness especially in his upper and lower extremities. He has had no recent falls. He denies having any neck pain. He does have a history of neck pain and surgery in the past. The patient denies having any new medications. He did have a thymoma removed in the past which was thought to be causing some of his symptoms but they did not improve. He had laboratory studies done with his primary care physician 3 days ago. He recently found the message that he was supposed to come to the ER because of an elevated CPK. He has had no rectal bleeding. He denies having any abdominal pain or chest pain. ROS: See above HPI for pertinent positives & negatives. A total of 10 systems reviewed and were otherwise negative. PAST MEDICAL HISTORY: See Below PAST SURGICAL HISTORY: See Below FAMILY HISTORY: See Below SOCIAL HISTORY: See Below HOME MEDICATIONS: See Below ALLERGIES: See Below VITALS: See Below PHYSICAL EXAMINATION: GENERAL: Patient is awake alert in no acute distress patient is resting comfortably and showing no signs of anxiety EYES: The conjunctivae are clear. The pupils are round and reactive. EARS, NOSE, MOUTH AND THROAT: The nose is without any evidence of any deformity. NECK: The neck is nontender and supple. RESPIRATORY: Normal respiratory effort is noted there is no evidence of wheezing rhonchi or rales CARDIOVASCULAR: Regular rate and rhythm noted there no murmurs rubs or gallops normal S1 normal S2. GASTROINTESTINAL: The abdomen is soft. Abdomen is nontender. MUSCULOSKELETAL/EXTREMITIES: There is no evidence of gross deformity full range of motion is noted in the hips and shoulders. SKIN: There is no obvious evidence of any rash. There are no petechiae, pallor or cyanosis noted. NEUROLOGIC: Patient is awake alert and oriented x3 strength is symmetric patellar reflexes are 2+ bilaterally MEDICAL DECISION MAKING: The patient is a 55-year-old male who presented to the emergency department for an evaluation of weakness. The patient has a history of rhabdomyolysis and e levated CPK levels. He has had this ongoing for a long time. Apparently the patient has not received a formal diagnosis. He did have a thymoma which was removed but it did not help his symptoms. He appears to have more of a myositis at this time. I discussed the patient's laboratory results with him. Given his elevation in CPK he was treated with IV fluids and I discussed his case with the on-call [facility]ist. They have agreed to evaluate the patient in the emergency department for further management and disposition. Triage Nursing notes reviewed. Prior medical records reviewed Vital Signs: reviewed and remarkable for no significant abnormalities Differential diagnosis: Infection, dehydration, metabolic abnormality, hypo/hyperglycemia, electrolyte disturbance, anemia, hypoxia, cardiac sources, intracerebral event, toxicologic, neurologic, as well as other pathologies. ER treatment provided: See below Diagnostics interpreted by me: ECG: EKG was obtained in the emergency department. My interpretation is normal sinus rhythm at 71 bpm. There is no ectopy. There is no acute ST segment abnormalities noted. This was compared to a tracing from September 122019. No significant changes were noted. Cardiac Monitoring: An order was placed for continuous cardiac monitoring. The monitor shows a rate of 90 bpm with sinus rhythm. Laboratory studies: As stated above and show below. Imaging studies: See below Consultation(s): I discussed this case with Dr. Julian who is on-call for the [facility]ist group. They have agreed to evaluate the patient in the emergency department for further management and disposition. Past Med/Surg History Medical History (Updated 02/02/21 @ 23:26 by Khoa Cartwright DO) BPH (benign prostatic hyperplasia) H/O thymoma Osteoarthritis Surgical History History of colonoscopy History of inguinal hernia repair, bilateral INFANCY History of thymectomy 2019 (BENIGN) 10/16/18 - MAC #4, Grade 2 View Hx of arthroscopy of knee B/L Family History Unknown No problems noted. Grandmother (Maternal) Family history of diabetes mellitus Social History Smoking Status: Former smoker Tobacco Type: Cigarettes Cigarettes Per Day: 20; Smoking End Date: 01/03/21; Second Hand Exposure: No; Hx Alcohol Use: Yes Alcohol type: beer Hx Substance Use: No Preferred Language: Armenian Communication Ability: Effective Director Advanced Required: No Beliefs That Will Affect Care: None marital status: Current Living Situation: Spouse Current Living Situation Comment: With Linsey Other Information That Helps Us Care for You: No Feels Safe at Home: Yes Safety Concerns: Feels Safe At This Time Assistive Devices: None Allergies Allergies Allergy/AdvReac Type Severity Reaction Status Date / Time Corticosteroids Allergy Hives Verified 02/02/21 23:03 (Glucocorticoids) Home Meds Home Medications Medication Instructions Recorded Confirmed pyridostigmine bromide 60 mg PO TID 02/02/21 02/02/21 Results & Data (ED) Vital Signs Vital Signs - 24 hr 02/02/21 17:15 02/02/21 18:29 Temperature 37.3 C Temperature Source Oral Pulse Rate 91 H Respiratory Rate 18 Blood Pressure 126/75 Blood Pressure Mean 92 Pulse Oximetry 97 Oxygen Delivery Method Room Air Room Air Sepsis Recent Fever Within 48 Hours No Sepsis New/Unexplained Change in Mental Status No Sepsis Action Taken by Nursing No Action Required Home Medications Current Medication List: was personally reviewed by me Laboratory Data Attestation: I reviewed the patient's lab results. Result diagrams: 02/02/21 18:44 02/02/21 18:44 Lab Results 02/02/21 02/02/21 02/02/21 Range/Units 18:44 18:44 20:15 WBC 7.63 (4.8-10.8) K/uL RBC 4.64 L (4.7-6.1) M/uL Hgb 14.2 (14.0-18.0) g/dL Hct 41.7 L (42-52) % MCV 89.9 (80-100) fL MCH 30.6 (25-34) pg MCHC 34.1 (32-36) g/dL RDW Std Deviation 44.9 (36.4-46.3) fL RDW Coeff of Gaurav 13.6 (11.5-14.5) % Plt Count 414 H (130-400) K/uL MPV 9.4 (7.4-10.4) fL Immature Gran % (Auto) 0.1 % Neut % (Auto) 67.6 % Lymph % (Auto) 18.2 % Prowers % (Auto) 6.8 % Eos % (Auto) 7.2 % Baso % (Auto) 0.1 % Neut # (Auto) 5.15 (1.4-6.5) K/uL Lymph # (Auto) 1.39 (1.2-3.4) K/uL Prowers # (Auto) 0.52 (0.11-0.59) K/uL Eos # (Auto) 0.55 H (0-0.5) K/uL Baso # (Auto) 0.01 (0-0.2) K/uL Immature Gran # (Auto) 0.01 (0.00-0.02) K/uL Sodium 138 (136-145) mmol/L Potassium 3.6 (3.5-5.1) mmol/L Chloride 102 (98-107) mmol/L Carbon Dioxide 28 (21-32) mmol/L Anion Gap 8.0 (3-11) BUN 17 (7-18) mg/dl Creatinine 0.85 (0.6-1.4) mg/dl Est Cr Clr Drug Dosing 131.4 ml/min Est GFR ( Amer) 112.9 ml/min Est GFR (Non-Af Amer) 97.4 ml/min BUN/Creatinine Ratio 19.6 (10-20) Glucose 70 (70-99) mg/dl Calcium 9.4 (8.5-10.1) mg/dl Magnesium 2.2 (1.8-2.4) mg/dl Total Bilirubin 0.5 (0.2-1) mg/dl AST 203 H (15-37) U/L ALT 198 H (12-78) U/L Alkaline Phosphatase 70 (45-117) U/L Total Creatine Kinase 2898 H (39-308) U/L CK-MB (CK-2) 115.6 H (0.5-3.6) ng/ml CK/CKMB % Calc 4.0 H (0-3.0) Troponin I < 0.015 (0-0.045) ng/ml Total Protein 7.3 (6.4-8.2) gm/dl Albumin 3.2 L (3.4-5.0) gm/dl Globulin 4.1 H (2.5-4.0) gm/dl Albumin/Globulin Ratio 0.8 L (0.9-2) TSH 1.930 (0.300-4.500) uIu/ml COVID-19 Eval Order Covid19 at [facility] SARS-CoV-2 (PCR) (Negative) 02/02/21 Range/Units 20:15 WBC (4.8-10.8) K/uL RBC (4.7-6.1) M/uL Hgb (14.0-18.0) g/dL Hct (42-52) % MCV (80-100) fL MCH (25-34) pg MCHC (32-36) g/dL RDW Std Deviation (36.4-46.3) fL RDW Coeff of Gaurav (11.5-14.5) % Plt Count (130-400) K/uL MPV (7.4-10.4) fL Immature Gran % (Auto) % Neut % (Auto) % Lymph % (Auto) % Prowers % (Auto) % Eos % (Auto) % Baso % (Auto) % Neut # (Auto) (1.4-6.5) K/uL Lymph # (Auto) (1.2-3.4) K/uL Prowers # (Auto) (0.11-0.59) K/uL Eos # (Auto) (0-0.5) K/uL Baso # (Auto) (0-0.2) K/uL Immature Gran # (Auto) (0.00-0.02) K/uL Sodium (136-145) mmol/L Potassium (3.5-5.1) mmol/L Chloride (98-107) mmol/L Carbon Dioxide (21-32) mmol/L Anion Gap (3-11) BUN (7-18) mg/dl Creatinine (0.6-1.4) mg/dl Est Cr Clr Drug Dosing ml/min Est GFR ( Amer) ml/min Est GFR (Non-Af Amer) ml/min BUN/Creatinine Ratio (10-20) Glucose (70-99) mg/dl Calcium (8.5-10.1) mg/dl Magnesium (1.8-2.4) mg/dl Total Bilirubin (0.2-1) mg/dl AST (15-37) U/L ALT (12-78) U/L Alkaline Phosphatase (45-117) U/L Total Creatine Kinase (39-308) U/L CK-MB (CK-2) (0.5-3.6) ng/ml CK/CKMB % Calc (0-3.0) Troponin I (0-0.045) ng/ml Total Protein (6.4-8.2) gm/dl Albumin (3.4-5.0) gm/dl Globulin (2.5-4.0) gm/dl Albumin/Globulin Ratio (0.9-2) TSH (0.300-4.500) uIu/ml COVID-19 Eval Order SARS-CoV-2 (PCR) NEGATIVE (Negative) Administered Medications Discontinued Medications Sodium Chloride (Nss 1000ml) 1,000 mls @ 999 mls/hr IV .Q1H1M BHANU Stop: 02/02/21 19:30 Last Infusion: 02/02/21 20:17 Dose: 0 mls/hr Documented by: [id number] Admin: 02/02/21 19:21 Dose: 999 mls/hr Documented by: [id number] Imaging Data Radiologist's Impression: Chest X-Ray 02/02/21 18:29 XR chest 1V portable HISTORY: weakness COMPARISON: Chest 09/12/2019. FINDINGS: No pneumothorax or no pleural effusions. No new focal lung consolidations to suggest pneumonia. No evidence for pulmonary edema. The heart is normal in size. The patient's known subcentimeter pulmonary nodules are better appreciated on the [address] IMPRESSION: No acute process. ACT 112: Negative or not required by law. Electronically signed by: Jose Isbell M.D. 02/02/2021 7:33 PM Discharge Plan Visit Data Chief Complaint: Dehydration Stated Complaint: DEHYDRATION ED Provider: Khoa Cartwright Discharge Problem: Rhabdomyolysis, Myositis Patient Disposition: Admitted As Inpatient Condition: Good Discharge Instructions Interventions: ED Discharge Assessment Last Done: 02/02/21 22:16 Discharge Problem: Rhabdomyolysis Qualifiers: Rhabdomyolysis type: non-traumatic Qualified Code(s): M62.82 - Rhabdomyolysis Myositis Qualifiers: Myositis type: unspecified type Myositis location: multiple sites Qualified Code(s): M60.9 - Myositis, unspecified
[2021-02-02 19:25] LABS: Albumin Globulin Ratio 0.8 (0.9-2); Alkaline Phosphatase 70 U/L (45-117); Bilirubin,Total 0.5 mg/dl (0.2-1); Creatine Kinase 2898 U/L (39-308); Creatine Kinase MB 115.6 ng/ml (0.5-3.6); Globulin 4.1 gm/dl (2.5-4.0); Total Protein 7.3 gm/dl (6.4-8.2); Troponin I < 0.015 ng/ml (0-0.045)
--- NOTE | 2021-02-02 19:35 | XRay Report ---
XR chest 1V portable HISTORY: weakness COMPARISON: Chest 09/12/2019. FINDINGS: No pneumothorax or no pleural effusions. No new focal lung consolidations to suggest pneumo leonid. No evidence for pulmonary edema. The heart is normal in size. The patient's known subcentimeter pulmonary nodules are better appreciated on the [address] IMPRESSION: No acute process. ACT 112: Negative or not required by law. Electronically signed by: Jose Isbell M.D. 02/02/2021 7:33 PM
[2021-02-02 22:18] LABS: Appearance Urine Clear (Clear); Bacteria Urine Automated Negative (Negative); Bilirubin Urine Negative (Negative); Blood Urine 1+ (Negative); Cast Urine Automated 0 /lpf (0-5); Color Urine Yellow; Epithelial Cell Urine Auto 0-5 /lpf (0-5); Glucose Urine UA Negative (Negative); Ketones Urine Negative (Negative); Leukocyte Esterase Urine Negative (Negative); Nitrite Urine Negative (Negative); Protein Urine Negative (Negative); RBC Urine Automated 0-4 /hpf (0-4); Specific Gravity Urine 1.007 (1.000-1.030); Urobilinogen Urine Negative (Negative); WBC Urine Automated 0 /hpf (0-5)
[2021-02-02] MEDS ORDERED: POLYETHYLENE (MIRALAX) 17 GM PACK PO PRN (22:53)
[2021-02-02] MEDS ORDERED: ACETAMINOPHEN 325 MG TAB PO PRN (22:53)
[2021-02-02] MEDS ORDERED: NITROGLYCERIN SL 0.4 MG/TAB TAB SL PRN (22:53)
[2021-02-02] MEDS: SODIUM CHLORIDE 0.9% 1000ML 1,000 ML IV SCH (23:26)
[2021-02-02] MEDS: PYRIDOSTIGMINE BROMIDE 60 MG TAB PO SCH (23:26)
--- NOTE | 2021-02-03 02:07 | History and Physical Report ---
DATE OF ADMISSION: 02/02/2021. CHIEF COMPLAINT: Weakness in the hands and legs and elevated CK. 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 The patient states he is having weakness in extremities over the last 1-1/2 years and he also had dysphagia in the past. He says dysphagia was because of his cervical problem and after cervical surgery done, dysphagia has improved, and the swelling in his hands has also improved, but the weakness has not improved, he still is dealing with it. He said he also found to have thymoma, and status post resection, it seems to be not followed up. Recently saw family doctor for again feeling of swelling in the hands and weakness and outpatient labs showed elevated CK and he was started on pyridostigmine and was advised to come to the ER for elevated CK for fluids. Currently, resting comfortably and hemodynamically stable. Denies any headache or dizziness. No blurred visions, no double vision, no earache, no runny nose, no sore throat, no cough, no fever, no chills, no chest pain, no shortness of breath, no heavy breathing. No nausea, no abdominal pain. Normal bowel and bladder movements. He says he is ambulating okay without any support, lately he feels a little bit imbalance. Appetite is okay. No fevers. Had COVID vaccine. ALLERGIES: STEROIDS. PAST MEDICAL HISTORY: As mentioned above. PAST SURGICAL HISTORY: Bilateral knee arthroplasty, colonoscopy, robot-assisted right thoracoscopy, thymectomy, right muscle biopsy, cervical spine fusion surgery. MEDICATIONS: Pyridostigmine 60 mg p.o. t.i.d. FAMILY HISTORY: No significant family history. SOCIAL HISTORY: . Smoked for 1 year. Alcohol over the weekends. No drug use. REVIEW OF SYSTEMS: As per HPI. Rest of the review of systems negative. PHYSICAL EXAMINATION: GENERAL: The patient is obese, not in acute distress. VITAL SIGNS: Temperature 37.3, pulse 90, respiratory rate 19, blood pressure 130/77, oxygen 99% on room air. HEENT: Pupils equal, round, and reactive to light. Oral mucosa moist. NECK: No JVD, no neck masses. CARDIOVASCULAR: S1 and S2 heard. Regular rate and rhythm. No murmur, no gallop. RESPIRATORY: Normal AP diameter. No accessory muscle, no wheezing, no crackles. ABDOMEN: Soft, bowel sounds present, nontender, no distention. CENTRAL NERVOUS SYSTEM: Cranial nerves II-XII grossly intact. Power is 4/5 in the left upper extremity, otherwise 5/5 in all extremities. Sensation is intact. EXTREMITIES: No edema, no erythema. LABORATORY DATA: WBC 7.6, hemoglobin 14.2, hematocrit 41.7, platelets 414. Sodium 138, potassium 3.6, chloride 102, bicarbonate 28, BUN 17, creatinine 0.8, serum glucose 70, calcium 9.4, magnesium 2.2, total bilirubin 0.5, AST 203, ALT 193, alkaline phosphatase 70, total creatinine kinase 2898. Troponin I less than 0.015. CK-MB 115. TSH 1.9. Urinalysis, +1 blood. SARS-CoV-2 PCR negative. IMAGING DATA: Chest x-ray, no active acute process. EKG: Normal sinus rhythm at a rate of 71, no significant change was found. ASSESSMENT AND PLAN: This 55-year-old male presents with ongoing weakness of extremities and also outpatient labs showed elevated CK. 1. Rhabdomyolysis, questionable from myasthenia gravis flare. Getting IV fluids. Will follow the repeat labs. Will follow elevated AST, ALT. Follow the repeat labs in the a.m. 2. Possible myasthenia gravis flare. Started on pyridostigmine bromide 60 mg p.o. t.i.d., which will continue. Continue neurology in the a.m. Currently, except for weakness in the hands and legs, no other symptoms. Will closely monitor. 3. Deep venous thrombosis prophylaxis: Lovenox. DISPOSITION: Closely monitor in the [facility]. Level 1 full code. Expect to discharge home and follow with family doctor. Job ID: [id number] [facility]
[2021-02-03] MEDS: SODIUM CHLORIDE 0.9% 1000ML 1,000 ML IV SCH ×4 (04:35→21:53)
[2021-02-03 06:26] LABS: Basophils # (auto) 0.01 K/uL (0-0.2); Basophils % (auto) 0.2 %; Eosinophils # (auto) 0.41 K/uL (0-0.5); Eosinophils % (auto) 7.5 %; Hematocrit (blood only) 38.8 % (42-52); Hemoglobin 13.2 g/dL (14.0-18.0); Immature Granulocytes # (auto) 0.02 K/uL (0.00-0.02); Immature Granulocytes % (auto) 0.4 %; Lymphocytes # (auto) 1.07 K/uL (1.2-3.4); Lymphocytes % (auto) 19.5 %; Mean Corpuscular Hemoglobin 30.1 pg (25-34); Mean Corpuscular Volume 88.4 fL (80-100); Mean Platelet Volume 9.6 fL (7.4-10.4); Monocytes # (auto) 0.31 K/uL (0.11-0.59); Monocytes % (auto) 5.6 %; Neutrophils # (auto) 3.67 K/uL (1.4-6.5); Neutrophils % (auto) 66.8 %; Platelet Count 351 K/uL (130-400); RDW Coefficient of Variation 13.6 % (11.5-14.5); Red Blood Count 4.39 M/uL (4.7-6.1); White Blood Count 5.49 K/uL (4.8-10.8)
[2021-02-03 06:33] LABS: Albumin Level 2.5 gm/dl (3.4-5.0); BUN Creatinine Ratio 26.4 (10-20); Bilirubin Direct 0.2 mg/dl (0-0.2); Calcium 8.5 mg/dl (8.5-10.1); Creatinine Clr Calc Pharmacy 189.6 ml/min; Est GFR (African American) 131.2 ml/min; Est GFR (Non-African American) 113.2 ml/min; Magnesium 2.1 mg/dl (1.8-2.4); Potassium 3.9 mmol/L (3.5-5.1)
[2021-02-03 06:48] LABS: Bilirubin,Total 0.4 mg/dl (0.2-1); Total Protein 5.8 gm/dl (6.4-8.2); Troponin I 0.026 ng/ml (0-0.045)
[2021-02-03] MEDS: PYRIDOSTIGMINE BROMIDE 60 MG TAB PO SCH ×3 (08:11→20:51)
[2021-02-03] MEDS ORDERED: ENOXAPARIN INJ 40 MG/0.4 ML SYR SQ SCH (09:00)
--- NOTE | 2021-02-03 14:18 | Hospitalist Progress Note ---
Date of Service February 03, 2021 Assessment & Plan (1) Myasthenia gravis: Of myasthenia gravis with chronic left arm weakness: Patient reports no worsening of symptoms, Continued with home dose of PO Pyridostigmine 60 mg TID Follows with neurology Dr. Townsend, need neuro consult requested (2) Rhabdomyolysis: CK Level elevated more than 2000, improved to 1900 after giving IV fluids Due to history of myositis? Does not appears to be in myasthenia flare, no diplopia, patient is currently asymptomatic(chronic symptoms for years, with no acute change) No report of fall or trauma. Renal function remains stable (3) Myositis: (4) Thymoma: Status post thymectomy CODE STATUS: Full code Disposition: Expected to be discharged home Admission and Anticipated Discharge Date Admission Date: February 02, 2021 Subjective Follow-up visit for rhabdomyolysis/left-sided weakness: Chronic Patient reports no new complaint, has chronic left arm swelling, numbness and weakness, Has difficulty on fine motor movement of fingers which has been going on for last several years Has been followed with rheumatology and neurology both. No complaint of fever chills no worsening of weakness or paresthesia, He feels the same Patient reports he did not had any acute symptoms prior to admission, Eager to be discharged home Review of Systems Review of Systems: All systems reviewed & are unremarkable except as noted in Subjective Physical Exam Constitutional: WD/WN, vitals as above Eyes: PERRL, conjunctivae normal, anicteric sclerae ENMT: external ear and nose normal, oropharynx normal Neck: normal visual inspection Respiratory: normal respiratory effort, lungs clear to auscultation Cardiovascular: RRR, no murmur, no edema Gastrointestinal (Abdomen): Percussion/Palpation: abdomen soft; abdomen nontender Musculoskeletal: Left arm swelling, noted, with increased warmth, which is chronic as per patient, muscle strength 4 out of 5 on left, normal on the right, Difficulty in fine motor movements of fingers Skin: no rashes, warm and dry Neurologic: PERRL, EOMI, accommodation nl, no face palsy, no dysarthria Psychiatric: A+Ox3, euthymic affect Results & Data Results & Data ([facility]) Vital Signs (Past 12 Hours) Vital Signs Temp Pulse Pulse Resp BP BP Pulse Ox 02/03/21 11:39 37.1 C 63 20 110/63 97 02/03/21 08:23 37.1 C 64 18 109/67 97 02/03/21 08:00 73 02/03/21 02:53 36.9 C 74 18 103/62 97 (1) Rhabdomyolysis Rhabdomyolysis type: non-traumatic Qualified Code(s): M62.82 - Rhabdomyolysis (2) Myositis Myositis location: multiple sites Myositis type: unspecified type Qualified Code(s): M60.9 - Myositis, unspecified
--- NOTE | 2021-02-03 15:34 | Communication Note ---
Date of Service: February 03, 2021 Patient was seen by neurology Dr. Townsend. Patient be started with IVIG for acute myasthenia gravis flare. Will need [address] Townsend spoke with pharmacy, ordered for next 3 days of IVIG and premedication prior to the infusion placed We will reduce IV fluids 100 mL/h We will continue to follow CK, CMP level daily Марина Butler MD
[2021-02-03] MEDS ORDERED: diphenhydrAMINE 50 MG/ML VIAL IV SCH (16:00)
[2021-02-03] MEDS ORDERED: ACETAMINOPHEN 325 MG TAB PO SCH (16:00)
[2021-02-03] MEDS: IMMUNE GLOBULIN(HUMAN) 10% 100 ML IV SCH ×8 (16:53→23:58)
--- NOTE | 2021-02-03 17:51 | Consultation Report ---
DATE OF CONSULTATION: , 02/03/2021. CHIEF COMPLAINT: Weakness, elevated CK level. HISTORY OF PRESENT ILLNESS: A 55-year-old male with a history of acetylcholine receptor antibody pos itive myasthenia gravis, currently not on disease-modifying therapy as well as prior history of rhabd omyolysis, presenting with elevated CK levels and generalized weakness. Symptoms have been ongoing. He had been seen by his family medicine physician who repeated a CK level and it was elevated in the . His liver enzymes were also elevated. He has noted weakness in both arms, predominantly inv olving both hands. He denies any trouble swallowing or difficulty speaking or shortness of breath. He stopped prednisone in the past due to adverse reaction where he states he had a rash or hives. He has never received IVIG. He did have surgery both for a thymoma as well as cervical spine surgery. Upon admission, he did receive IV fluids and his CK level trended down. He is still very symptomati c and having weakness in both hands as well as trouble lifting both arms above the bed. Neurology wa s consulted upon admission for further recommendations. ALLERGIES: CORTICOSTEROIDS. HOME MEDICATIONS: Mestinon 60 mg 3 times daily. PAST MEDICAL HISTORY: History of cervical osteophytes, status post cervical spine surgery, history o f myasthenia gravis, thymoma, status post resection, history of elevated CK, benign prostatic hypertr ophy. PAST SURGICAL HISTORY: Bilateral knee arthroplasty, colonoscopy, robotic-assisted right thoracostomy , thymectomy, muscle biopsy, cervical spine fusion. FAMILY HISTORY: Reviewed. No significant or pertinent family history. SOCIAL HISTORY: He is . Smoked for 1 year. Drinks alcohol occasionally. Denies any drug use . REVIEW OF SYSTEMS: Pertinent for weakness. The rest of the review of systems was negative. PHYSICAL EXAMINATION: VITAL SIGNS: Blood pressure 133/73, pulse of 69, respiratory rate 16, temperature 37 degrees Celsius . GENERAL: The patient appears stated age, he appears in no distress. HEENT: His head is normocephalic and atraumatic. He has normal eyelids and normal conjunctivae. Th ere is no ptosis. NECK: Supple. LUNGS: Normal respiratory effort. CARDIAC: Pulses are normal. ABDOMEN: Nondistended. SKIN: No skin rash. PSYCHIATRIC: Normal mood and normal affect. NEUROLOGIC: He is awake, alert, oriented to person, place, and time. His attention is normal. Know ledge is appropriate. He has no aphasia, no dysarthria. Pupils are symmetric. He has no visual def ect on confrontation. His extraocular muscles are intact. Facial sensation is intact. No facial as ymmetry. Intact hearing. Palate is symmetric. Good shoulder shrug. Tongue is midline. Gait evalu ation deferred. Coordination: No ataxia with [id number] testing. Sensation is intact to light touch. Muscle tone is normal. Muscle examination reveals significant weakness in both hands, predom inantly involving interosseous as well as finger flexors. He also has 4+/5 in bilateral shoulder abd uction. Biceps are 4+/5. Lower extremity strength is 5/5. Reflexes show negative Omar sign and no ankle clonus. DIAGNOSTIC TESTING AND LABORATORY VALUES: WBC 5.49, hemoglobin 13.2, platelet count 351. Sodium 140, potassium 3.9, chloride 109, BUN 16, creatinine 0.59, magnesium 2.1, AST is 133, ALT is 143. Total c reatine kinase has trended down from 2898 to 1982. CK-MB fraction is elevated at 65. Urinalysis tati wed 1+ blood. COVID-19 was negative. Chest x-ray showed no acute process. ASSESSMENT AND PLAN: A 55-year-old male with acetylcholine receptor antibody positive myasthenia gra vis as well as a presumed polymyositis or rhabdomyolysis, admitted with myasthenia gravis exacerbatio n/myositis flare. He did not tolerate prednisone in the past and he is not on disease-modifying ther apy for his myasthenia gravis. At the current time, the patient has significant weakness in both marx d and has inability to use both hands. Therefore, I would consider this a significant exacerbation. Recommend starting IVIG 2 grams/kilogram divided over a 3-day course. I appreciate pharmacy's natalya tance with arranging this dosing. The patient is agreeable to stay for 3 days to receive IVIG. While he is inpatient, we will continue IV fluids. The plan for the patient to be discharged on Sunday. Otherwise, on an outpatient basis, I will need to follow up the patient and certainly consider arran ging monthly IVIG or quarterly IVIG and I will further discuss disease-modifying therapy for his myas thenia gravis. At this time, since he did not tolerate steroids, we will need to consider a steroid- sparing agent such as CellCept. For now, while he is inpatient, I would continue the Mestinon 60 mg 3 times daily. I would not recommend addition of steroids as the patient is adamant that it caused s ignificant side effects including hives. While he is inpatient, I would recommend strongly following the CK levels as I hope this will trend down. He did have a muscle biopsy in the past, which did not show strong evidence for dermatomyositis or polymyositis. Dr. Marianne Sanabria will be assuming [facility] neurology service tomorrow. I will ask her to keep an eye on this patient while he is inpatient. Job ID: [id number]
--- NOTE | 2021-02-03 22:50 | Electrocardiogram Report ---
Test Reason : Blood Pressure : / mmHG Vent. Rate : 071 BPM Atrial Rate : 071 BPM P-R Int : 184 ms QRS Dur : 104 ms QT Int : 396 ms P-R-T Axes : 050 -13 009 degrees QTc Int : 430 ms Normal sinus rhythm Normal ECG When compared with ECG of 12-SEP-2019 10:05, No significant change was found Confirmed by Roni Bocanegra ([id number]) on 02/03/2021 10:49:59 PM Referred By: Yung Fernandez Confirmed By:Roni Bocanegra
[2021-02-04 06:34] LABS: Albumin Level 2.4 gm/dl (3.4-5.0); BUN Creatinine Ratio 18.4 (10-20); Calcium 8.5 mg/dl (8.5-10.1); Creatinine Clr Calc Pharmacy 164.6 ml/min; Est GFR (African American) 123.7 ml/min; Est GFR (Non-African American) 106.8 ml/min
[2021-02-04 06:48] LABS: Albumin Globulin Ratio 0.5 (0.9-2); Bilirubin,Total 0.5 mg/dl (0.2-1); Globulin 4.5 gm/dl (2.5-4.0); Total Protein 6.9 gm/dl (6.4-8.2)
[2021-02-04] MEDS: ACETAMINOPHEN 325 MG TAB PO SCH (07:52)
[2021-02-04] MEDS: diphenhydrAMINE 50 MG/ML VIAL IV SCH (07:53)
[2021-02-04] MEDS: PYRIDOSTIGMINE BROMIDE 60 MG TAB PO SCH ×3 (07:53→20:45)
[2021-02-04] MEDS: SODIUM CHLORIDE 0.9% 1000ML 1,000 ML IV SCH ×2 (07:56→18:01)
[2021-02-04] MEDS ORDERED: IMMUNE GLOBULIN(HUMAN) 10% 100 ML IV SCH (08:00)
[2021-02-04] MEDS: IMMUNE GLOBULIN(HUMAN) 10% 100 ML IV SCH ×8 (09:08→17:27)
--- NOTE | 2021-02-04 16:04 | Progress Notes ---
SUBJECTIVE: I am seeing the patient in followup of an exacerbation of myasthenia gravis. He has ant ibody positive and had a thymoma resected preceding the diagnosis. He has been weaker over the last 3 to 4 weeks. No sensory symptoms. No bowel or bladder symptoms. No neck pain or Lhermitte's pheno victoria. He was not otherwise ill and none of his medicines were new. He started Mestinon as an outpa tient about a week ago without any improvement. The patient tried steroids about a year ago and josee loped an immediate rash after the first dose. The rash was accompanied by hives. The patient denies any dysphagia, dysarthria, ptosis, diplopia, weakness of the neck flexors. He feels that he is mild ly stronger and has less muscle pain today. His CK is stable to mildly increase at 2066 and his saldaña saminases are trending downward. OBJECTIVE: VITAL SIGNS: BP 127/79, pulse 59, respirations 20, temperature 37, O2 sat 96% on room air. NEUROLOGIC: The patient is awake and alert. Speech and language are normal. There is no nasality o f speech or dysarthria. No ptosis is noted. No fatigability of eye movement or eye closure is noted . There is no weakness of neck flexors, extensors, jaw opening. The patient is able to put air in h is cheeks and hold it there. He is able to count greater than 40 on one breath. There is normal mus august bulk. Right ecmo specialist strength is 4, left is 3. Right FDI and ADM about 3-3+ left FDI and ADM about 3 -. APBs are about 2+. Finger extensors on the right are less than antigravity. There are about anti gravity on the left. Right wrist extensors are 4, left about 3+. The biceps is 4 on the right, 3+ o n the left. The triceps are 2+ to 3 bilaterally and the deltoids are about 3+ with some fatigability . Lower extremity strength is normal. Reflexes are diminished in the upper. Knee jerks are present. Ankle jerks are present. There is no clonus and toes are downgoing. No crossed adductors are note d. There is intact vibration sense at the ankles and normal temperature sense in all 4 extremities. Gait was not tested. IMPRESSION: History of thymoma, antibody positive, myasthenia gravis, recent flare over the last 3 o r 4 weeks, unclear precipitant. The only thing that had been different was that the patient received the COVID vaccination two or so weeks prior. The patient reports some improvement of strength and h is CK has been trending downward, although today is stable. Agree with 3 days of IVIG. The patient will see Dr. Watt as an outpatient. He will discuss disease modifying therapy such as CellCept. It may be helpful in the future if the patient sees Allergy to determine if he is truly allergic to p rednisone and if he can take some form of steroid. This may be helpful for his general health as wel l as his management for myasthenia gravis in the future. I will see the patient tomorrow. Job ID: [id number]
--- NOTE | 2021-02-04 17:05 | Hospitalist Progress Note ---
Date of Service February 04, 2021 Assessment & Plan (1) Myasthenia gravis: hx Of myasthenia gravis with chronic left arm weakness: Patient reports no worsening of symptoms,/myasthenia flare Continued with home dose of PO Pyridostigmine 60 mg TID Follows with neurology Dr. Townsend, appreciate input from neurology . On IVIG 3 days treatment Continue to monitor (2) Rhabdomyolysis: Continue IV fluids, monitor CK level . Gradually improving, renal function remains stable Due to history of myositis? Presented with myasthenia flare No report of fall or trauma. Transaminitis: Possible due to above, no GI symptoms Follow levels daily (3) Myositis: (4) Thymoma: Status post thymectomy CODE STATUS: Full code Disposition: Expected to be discharged home Admission and Anticipated Discharge Date Admission Date: February 02, 2021 Subjective Follow-up visit for rhabdomyolysis/left-sided weakness: Myasthenia gravis flare Started on IVIG, has been tolerating well, Denies of any fever or chills, no allergic reaction or adverse reaction to IVIG so far Shortness of breath, no chest discomfort, Appetite normal no nausea vomiting Patient reports he feels slight improvement on his energy status since starting on the IVIG Have left arm with weakness and difficulty in fine motor movement on his fingers Review of Systems Review of Systems: All systems reviewed & are unremarkable except as noted in Subjective Physical Exam Constitutional: WD/WN, vitals as above Eyes: PERRL, conjunctivae normal, anicteric sclerae ENMT: external ear and nose normal, oropharynx normal Neck: normal visual inspection Respiratory: normal respiratory effort, lungs clear to auscultation Cardiovascular: RRR, no murmur, no edema Gastrointestinal (Abdomen): Percussion/Palpation: abdomen soft; abdomen nontender Musculoskeletal: Difficult fine motor movement of fingers on both hands, mild weakness on left upper arm 4 x 5, Skin: no rashes, warm and dry Neurologic: PERRL, EOMI, accommodation nl, no face palsy, no dysarthria Psychiatric: A+Ox3, euthymic affect Results & Data Results & Data ([facility]) Vital Signs (Past 12 Hours) Vital Signs Temp Pulse Pulse Resp BP Pulse Ox 02/04/21 15:13 37.0 C 59 L 20 127/79 96 02/04/21 15:10 68 02/04/21 10:56 36.9 C 59 L 18 118/71 97 02/04/21 10:23 36.8 C 58 L 20 101/63 97 02/04/21 08:37 37.3 C 74 20 109/65 94 02/04/21 07:39 36.8 C 59 L 18 108/70 95 02/04/21 07:27 36.6 C 60 16 116/67 97 02/04/21 07:00 68 (1) Rhabdomyolysis Rhabdomyolysis type: non-traumatic Qualified Code(s): M62.82 - Rhabdomyolysis (2) Myositis Myositis location: multiple sites Myositis type: unspecified type Qualified Code(s): M60.9 - Myositis, unspecified
[2021-02-05] MEDS: SODIUM CHLORIDE 0.9% 1000ML 1,000 ML IV SCH (04:03)
[2021-02-05] MEDS: diphenhydrAMINE 50 MG/ML VIAL IV SCH (07:32)
[2021-02-05] MEDS: ACETAMINOPHEN 325 MG TAB PO SCH (07:32)
[2021-02-05] MEDS: IMMUNE GLOBULIN(HUMAN) 10% 100 ML IV SCH ×8 (07:48→13:58)
[2021-02-05 08:06] LABS: Albumin Level 2.4 gm/dl (3.4-5.0); BUN Creatinine Ratio 16.8 (10-20); Calcium 9.2 mg/dl (8.5-10.1); Creatinine Clr Calc Pharmacy 150.9 ml/min; Est GFR (African American) 119.5 ml/min; Est GFR (Non-African American) 103.1 ml/min
[2021-02-05 08:28] LABS: Albumin Globulin Ratio 0.4 (0.9-2); Bilirubin,Total 0.5 mg/dl (0.2-1); Globulin 5.7 gm/dl (2.5-4.0); Total Protein 8.1 gm/dl (6.4-8.2)
[2021-02-05] MEDS: PYRIDOSTIGMINE BROMIDE 60 MG TAB PO SCH ×2 (09:25→13:17)
--- NOTE | 2021-02-05 11:17 | Progress Notes ---
SUBJECTIVE: I am seeing Mr. Burris in followup of myasthenia gravis with a history of thymoma, which p receded the diagnosis and positive antibody testing with episodes of transiently elevated CK with a n egative biopsy. He is on day 3 of IVIG, which he is tolerating well. He has not had any itching. Eben canales has no cranial nerve symptoms. No diplopia, dysarthria, dysphagia. No difficulty lifting his head off the pillow. He feels his arms are improved. There are no sensory symptoms. He has been able t o walk in the room. OBJECTIVE: On exam, he is awake and alert. No dyspnea at rest. Speech is non-nasal. There is norm al extraocular motility without fatigue. There is normal eye closure without fatigue. No neck flexo r weakness is noted. Motor armature varnisher strength is 4+ on the right, 3+ on the left, FDI and ADM on the righ t are about 3+ to 4, FDI on the left is 3+, ADM trace, finger flexor is about 3 on the left, 4 on the right. APBs are fairly weak. Wrist extensor on the right is 4+, on the left is 3+. Finger extenso rs, there is still finger drop on the right hand. Biceps is about 4 bilaterally; triceps 4 on the ri ght, 2+ on the left; and the deltoids are antigravity with no fatigability. Lower extremity strength is full. Reflexes are brisk at the knees, present at the ankles. There is no clonus. Toes are tyree ngoing. There are no crossed adductors. The patient's gait is unremarkable. IMPRESSION AND PLAN: Presumed myasthenia gravis based on history of a resected thymoma, positive ant ibodies. The patient's clinical course has been somewhat atypical. He has had episodes of elevated CKs with a negative biopsy. I believe that he is somewhat stronger in the upper extremities, especia lly in the triceps on the right given 3 days of IVIG. I have no objection to the patient being disch arged today if he is stable. He should return if he has increasing weakness or any bulbar symptoms. We spoke about potential for plasma exchange were he not to have good response to IVIG. We talked ab out long-term immunosuppressant mentioning CellCept. The patient is believed to have a prednisone al lergy. I would recommend that he be seen by allergy to determine if indeed this is true as it is imp ortant as he will likely need steroids at some point in his life, whether it be for this disorder or an allergic reaction. Consider referral to a tertiary care center for further evaluation due to the atypical nature of his presentation. Job ID: [id number]
--- NOTE | 2021-02-05 13:30 | Discharge Summary ---
Date of Service February 05, 2021 Admission HPI Per Admitting Provider DICTATED BY: Harvey Julian MD DATE OF ADMISSION: 02/02/2021. CHIEF COMPLAINT: Weakness in the hands and legs and elevated CK. HISTORY OF PRESENT ILLNESS: This is a 55-year-old male with past medical histor y significant for BPH, history of cervical osteophytes status post cervical spine surgery, history of myasthenia gravis, history of thymoma status post resection, history of elevated CK, who presents with elevated CK and weakness in his extremities. The patient states he is having weakness in extremities over the last 1-1/2 years and he also had dysphagia in the past. He says dysphagia was because of his cervical problem and after cervical surgery done, dysphagia has improved, and the swelling in his hands has also improved, but the weakness has not improved, he still is dealing with it. He said he also found to have thymoma, and status post resection, it seems to be not followed up. Recently saw family doctor for again feeling of swelling in the hands and weakness and outpatient labs showed elevated CK and he was started on pyridostigmine and was advised to come to the ER for elevated CK for fluids. Currently, resting comfortably and hemodynamically stable. Denies any headache or dizziness. No blurred visions, no double vision, no earache, no runny nose, no sore throat, no cough, no fever, no chills, no chest pain, no shortness of breath, no heavy breathing. No nausea, no abdominal pain. Normal bowel and bladder movements. He says he is ambulating okay without any support, lately he feels a little bit imbalance. Appetite is okay. No fevers. Had COVID vaccine. Principal Diagnosis Myasthenia gravis flare Rhabdomyolysis Left upper extremity weakness Discharge Exam Constitutional WD/WN, vitals as above Eyes PERRL, conjunctivae normal, anicteric sclerae ENMT external ear and nose normal, oropharynx normal Neck normal visual inspection Respiratory normal respiratory effort, lungs clear to auscultation Cardiovascular RRR, no murmur, no edema Gastrointestinal (Abdomen) Percussion/Palpation: abdomen soft; abdomen nontender Skin no rashes, warm and dry Neurologic PERRL, EOMI, accommodation nl, no face palsy, no dysarthria Psychiatric A+Ox3, euthymic affect Discharge Data Allergies Allergy/AdvReac Type Severity Reaction Status Date / Time Corticosteroids Allergy Hives Verified 02/02/21 23:03 (Glucocorticoids) Consultations 02/02/21 19:55 ED Decision to Admit Stat 02/03/21 08:00 Consult Neurology Routine Hospital Course (1) Myasthenia gravis: hx Of myasthenia gravis with chronic left arm weakness: Patient reports no worsening of symptoms,/myasthenia flare Continued with home dose of PO Pyridostigmine 60 mg TID Follows with neurology Dr. Townsend, appreciate input from neurology completed IVIG #3 days treatment pt reports improvement of finger movements , able to make a fist now evaluted by Neurology -stable to be discharged home today (2) Rhabdomyolysis: Continue IV fluids, monitor CK level . Gradually improving, renal function remains stable Due to history of myositis? Presented with myasthenia flare No report of fall or trauma. repeat CK level in a week Transaminitis: Possible due to above, no GI symptoms repeat CK level in a week (3) Myositis: (4) Thymoma: Status post thymectomy CODE STATUS: Full code Disposition: stable to be discharged home Total Time Total Time Spent Total Time Spent (In Minutes): approx 35 mins Total Time Includes: Examination of the Patient, Discharge Planning and Medication Reconciliation Discharge Plan Discharge Items Patient Disposition: Home - Self-Care Reason For Visit: WEAKNESS Discharge Diagnosis: Myasthenia gravis flare Rhabdomyolysis Left upper extremity weakness Condition on Discharge: Good Activity: As commented below Activity Comment: as tolerated Non-emergency contact: Primary Care Provider Call non-emergency contact if: you have any medication questions Follow-up/Referrals: Yung Fernandez MD [Primary Care Provider] - (Date & Time 02/11/2021 10:40 AM Provider Yung Fernandez MD Department Family Practice [facility] ) Tucker Watt, [Physician] - (Please call to schedule for next neurology visit) Diet: Regular Addtl Attending Provider Instructions: Please take all medications as instructed on discharge list below. It is recommended that you follow-up with your primary care physician within 1-2 weeks of hospital discharge to ensure you are still doing well. Please call if you have any questions or problems. You can reach a [facility] hospitalist on duty at [facility] 24 hours a day by calling [phone] [facility] [employer]r Provider Instructions: Lab work: Comprehensive metabolic panel, CK level in 1 week Pending Studies at Discharge: No Stand-Alone Forms: [facility], Smoking Cessation Medications and DC Order Prescriptions: Continued pyridostigmine bromide 60 mg Tablet 60 mg PO TID RF: 0 Discharge Orders: Discharge Order (Routine); Ordered 02/05/21 Ordered By: Марина Perez/Other Patient Handouts: Myasthenia Gravis Admission Data Admit Date/Time: 02/02/21 20:36 Attending Provider: Марина Butler Admit Provider: Harvey Julian Primary Care Provider: Yung Fernandez Other Providers: Harvey Julian ; Marianne Felix ; Uri Rodriguez ; Marianne Sanabria ; Tucker Watt Other Interventions: Discharge Summary Assessment (RN) Last Done: 02/05/21 13:41
== END 2021-02-05 14:55 | disposition home or self-care (01) | DRG 57 ==
LOC: ED 17:13 → 2W 20:36